=== PATIENT | male | born 1955 | race Native Hawaiian/Other Pacific Islander ===

== ENCOUNTER 2018-02-07 17:48 | Inpatient (IN) | payer OTHER, MEDICAID ==
[~2018-02-07] VITALS: Ht 170.2 cm; Wt 111.6 kg
--- NOTE | 2018-02-07 19:12 | NUR ---
REPORT TAKEN FROM FEROZ PARK. ASSUMING PT CARE AT THIS TIME.
--- NOTE | 2018-02-07 19:22 | NUR ---
DR MICHELLE ADHIKARI MD AT BEDSIDE FOR MSE.
[2018-02-07] MEDS ORDERED: IV NORMAL SALINE 1000 ML BAG IV ONE ×2 (19:30→20:45)
--- NOTE | 2018-02-07 19:31 | NUR ---
LAB AT BEDSIDE FOR BLOOD DRAW.
[2018-02-07 19:52] LABS: BASOPHILS # (AUTO) 0.1 K/uL (0.0-8.0); BASOPHILS % (AUTO) 0.4 % (0.0-2.0); EOSINOPHILS # (AUTO) 0.1 K/uL (0.0-0.7); EOSINOPHILS % (AUTO) 0.9 % (0.0-7.0); HEMATOCRIT 39.4 % (36.7-47.1); HEMOGLOBIN 13.6 g/dL (12.5-16.3); LYMPHOCYTES # (AUTO) 1.1 K/uL (20.0-40.0); LYMPHOCYTES % (AUTO) 6.6 % (20.5-51.5); MEAN CORPUSCULAR HEMOGLOBIN 29.4 uug (23.8-33.4); MEAN CORPUSCULAR HGB CONC 35 g/dL (32.5-36.3); MEAN CORPUSCULAR VOLUME 85.2 fL (73.0-96.2); MONOCYTES # (AUTO) 1.2 K/uL (2.0-10.0); MONOCYTES % (AUTO) 7.4 % (0.0-11.0); NEUTROPHILS # (AUTO) 13.9 K/uL (1.8-8.9); NEUTROPHILS % (AUTO) 84.7 % (38.5-71.5); PLATELET COUNT (AUTO) 300 K/uL (152-348); RED BLOOD CELL COUNT(AUTO) 4.62 MIL/uL (4.06-5.63); WHITE BLOOD COUNT (AUTO) 16.4 K/uL (3.6-10.2)
[2018-02-07 20:13] LABS: BILIRUBIN,DIRECT 0.2 mg/dL (0.0-0.2); BILIRUBIN,TOTAL 0.6 mg/dL (0.2-1.0); CREATININE 1.1 mg/dL (0.6-1.3); POTASSIUM 4.2 mmol/L (3.5-5.1); TOTAL PROTEIN, SERUM 7.7 g/dL (6.4-8.2)
[2018-02-07] MEDS ORDERED: PIPERACILLIN/TAZOBACTAM/D5W 50 ML IV ONE (20:36)
--- NOTE | 2018-02-07 20:36 | NUR ---
PT PROVIDED PERINEAL CARE AND REPOSITIONED IN BED FOR COMFORT. NO ACUTE DISTRESS NOTED.
[2018-02-07] MEDS ORDERED: VANCOMYCIN IV 1,000 MG in IV DEXTROSE 5% 250 ML IV ONE (20:45)
[2018-02-07] MEDS ORDERED: PIPERACILLIN SODIUM/TAZOBACTAM 3.375 G in IV DEXTROSE 5% 50 ML IV ONE (20:45)
[2018-02-07] MEDS ORDERED: LIRA0.6P SQ (20:55)
[2018-02-07] MEDS ORDERED: BENZ1TAB7 PO (20:55)
[2018-02-07] MEDS ORDERED: D-ME118S12 PO (20:55)
[2018-02-07] MEDS ORDERED: ACET-73 PO ×2 (20:55)
[2018-02-07] MEDS ORDERED: ATOR40TA PO (20:55)
[2018-02-07] MEDS ORDERED: TRAZ-147 PO (20:55)
[2018-02-07] MEDS ORDERED: RISP2TAB23 PO (20:55)
[2018-02-07] MEDS ORDERED: ALBU8.5H8 IH (20:55)
[2018-02-07] MEDS ORDERED: HALLS PO (20:55)
[2018-02-07] MEDS ORDERED: MELA3TAB PO (20:55)
[2018-02-07] MEDS ORDERED: DAPA10TA PO (20:55)
[2018-02-07] MEDS ORDERED: DIPH1TAB PO (20:55)
[2018-02-07] MEDS ORDERED: INSU3INS6 SQ (20:55)
[2018-02-07] MEDS ORDERED: LOPE-156 PO (20:55)
[2018-02-07] MEDS ORDERED: METF-494 PO (20:55)
[2018-02-07] MEDS ORDERED: ESCI20TA PO (20:55)
[2018-02-07] MEDS ORDERED: NOVOLIN R (20:55)
[2018-02-07] MEDS ORDERED: GUAI100S4 PO (20:55)
[2018-02-07] MEDS ORDERED: SODI1TAB3 PO (20:55)
[2018-02-07] MEDS ORDERED: [UNRECOGNIZED DRUG - CODE] MC (20:55)
[2018-02-07] MEDS ORDERED: GABA-534 PO (20:55)
[2018-02-07] MEDS ORDERED: METO-356 PO (20:55)
[2018-02-07] MEDS ORDERED: TOBR5DRO46 RIGHTEYE (20:55)
[2018-02-07] MEDS ORDERED: LISI10TA5 PO (20:55)
[2018-02-07] MEDS ORDERED: GLIP10TA11 PO (20:55)
[2018-02-07] MEDS ORDERED: LORA10TA7 PO (20:55)
[2018-02-07] MEDS ORDERED: DICY10CA13 PO (20:55)
[2018-02-07] MEDS ORDERED: IV NS 1000 ML 1,000 ML IV ONE (21:00)
[2018-02-07] MEDS ORDERED: SWABABLE VALVE TRANSFER SET EA MC ONE (21:05)
[2018-02-07] MEDS ORDERED: IV NORMAL SALINE 100 ML ONE (21:05)
[2018-02-07] MEDS ORDERED: NORMAL SALINE FLUSH 10 ML DISP.SYRIN ONE (21:05)
[2018-02-07] MEDS ORDERED: IOHEXOL 300MG/ML 100 ML INFUS..BTL ONE (21:05)
--- NOTE | 2018-02-07 21:30 | NUR ---
ACCOMPANIED TO PT TO CT. PT ON MONITOR. NO ACUTE AVENTS OR DISTRESS DURING PROCEDURE. VSS
[2018-02-07] MEDS ORDERED: VANCOMYCIN IV 200 ML ONE (21:57)
--- NOTE | 2018-02-07 22:17 | NUR ---
DR MARTINEZ SPEAKING W/ DR GILES
--- NOTE | 2018-02-07 22:25 | NUR ---
DR MARTINEZ SPEAKING W/ DR BUCK, COVERING FOR DR MISTRY
--- NOTE | 2018-02-07 22:42 | NUR ---
SPOKE TO WALESKA AT [facility]- WAS TOLD THAT THEY ARE AT CAPACITY AND UNABLE TO ACCEPT PT AT THIS TIME.
[2018-02-07] MEDS ORDERED: METRONIDAZOLE 500 MG/NS 100 ML PIGGYBACK IV ONE (22:45)
--- NOTE | 2018-02-07 22:47 | NUR ---
SPOKE TO BRIEN, ROUGH ROUNDER MACHINE AT [facility]. WAS TOLD THEY HAVE NO BEDS AND ARE UNABLE TO ACCEPT PT.
--- NOTE | 2018-02-07 22:52 | NUR ---
SPOKE TO GISELA FROM [facility]. WAS TOLD THEY DO NOT HAVE AN AVAILABLE UROLOGIST, AND ARE THEREFORE UNABLE TO ACCEPT PT.
--- NOTE | 2018-02-07 23:09 | NUR ---
SPOKE TO [facility] TRANSF[facility] [place]. SEND FACE SHEET AND CT RESULTS. PENDING CALL BACK FOR POSSIBLE PT TRANSFER PHONE: [phone] FAX: [phone]
--- NOTE | 2018-02-07 23:13 | NUR ---
DR BUCK, UROLOGIST AT BEDSIDE FOR EVAL.
--- NOTE | 2018-02-07 23:37 | NUR ---
2335 DR MISTRY AT BEDSIDE FOR EVAL. [address] DR MISTRY SPEAKING TO DR GILES. [address] MARTINEZ SPEAKING TO DR SNOW.
[2018-02-08] VITALS (22 sets, daily range): BP systolic 110–154; BP diastolic 56–90
[2018-02-08] MEDS ORDERED: METRONIDAZOLE 500 MG/NS 100ML 100 ML IV ONE (00:05)
[2018-02-08] MEDS ORDERED: SUCCINYLCHOLINE CHLORIDE 200 MG/10 ML VIAL ONE (00:45)
[2018-02-08] MEDS ORDERED: CLINDAMYCIN PHOSPHATE 600 MG/4 ML VIAL ONE (00:54)
--- NOTE | 2018-02-08 00:55 | NUR ---
PT TAKEN TO OR BY OR NURSE.
[2018-02-08] MEDS ORDERED: ROCURONIUM BROMIDE 50 MG/5 ML VIAL ONE (01:21)
[2018-02-08] MEDS ORDERED: NEOSTIGMINE METHYLSULFATE 10 MG/10 ML VIAL ONE (01:22)
--- NOTE | 2018-02-08 02:20 | NUR ---
Called by crew person LEATHER LACER to administer a resp neb tx. Albuterol Sulfate 2.5mg post op to pt. The med is not accessible on eMAR at this time; XAVIER LEATHER LACER aware and notified and will notify pharmacy of medication administration.
[2018-02-08] MEDS ORDERED: ALBUTEROL SULFATE 2.5 MG/3 ML NEBU ONE (02:22)
[2018-02-08] MEDS: PANTOPRAZOLE SODIUM 40 MG VIAL IV SCH ×2 (02:45→09:05)
[2018-02-08] MEDS ORDERED: DIPHENOXYLATE HCL/ATROP SULF TABLET PO PRN (02:45)
[2018-02-08] MEDS: PIPERACILLIN SODIUM/TAZOBACTAM 3.375 G in IV DEXTROSE 5% 50 ML IV SCH ×3 (02:45→18:33)
[2018-02-08] MEDS ORDERED: [UNRECOGNIZED DRUG - OTHER] IV SCH (02:45)
[2018-02-08] MEDS ORDERED: DEXTROSE IV SCH (02:45)
[2018-02-08] MEDS ORDERED: ONDANSETRON 4 MG/2 ML VIAL IV PRN (02:45)
--- NOTE | 2018-02-08 03:13 | NUR ---
REPORT GIVEN TO PING
[2018-02-08] MEDS ORDERED: IV SODIUM CHLORIDE 3% 500 ML IV PRN (03:30)
--- NOTE | 2018-02-08 03:30 | NUR ---
Pt. admitted to CCU, under care of Dr. SNOW Belongs List completed
--- NOTE | 2018-02-08 03:30 | NUR ---
Received pt from [facility]; pt kept in ER as CCU overflow. s/p Scrotal exploration, I and D, debridement of necrotic tissue by Dr. Lesly Stanton/Dr. Multani. Pt awake and alert, cooperative. Large perineal dressings with mesh intact. IV Hypertonic NS infusing from PACU at 30 ml/hr right forearm, site benign. Smith cath intact and patent draining clear yellow urine. Routine admission care rendered. Dr. Sarahy Pemberton called in for admission orders.
[2018-02-08] MEDS ORDERED: ALBUTEROL SULFATE 8 GM HFA.AER.AD IH SCH (04:00)
--- NOTE | 2018-02-08 04:00 | NUR ---
Ventolin inhaler unavailable with pt in ER; pt received neb Tx in PACU. Pt in no acute resp distress. O2 sats adequate at 98% on room air.
[2018-02-08] MEDS ORDERED: IV D5 1/2 NS 1000 ML 1,000 ML IV PRN (04:15)
[2018-02-08 05:43] LABS: CREATININE 1.1 mg/dL (0.6-1.3); POTASSIUM 4.7 mmol/L (3.5-5.1)
[2018-02-08] MEDS ORDERED: PIPERACILLIN/TAZOBACTAM/D5W 50 ML IV ONE (05:43)
[2018-02-08 05:47] LABS: BASOPHILS % (AUTO) 0.1 % (0.0-2.0); EOSINOPHILS % (AUTO) 0.1 % (0.0-7.0); HEMATOCRIT 39.1 % (36.7-47.1); HEMOGLOBIN 13.3 g/dL (12.5-16.3); LYMPHOCYTES # (AUTO) 0.4 K/uL (20.0-40.0); LYMPHOCYTES % (AUTO) 2.2 % (20.5-51.5); MEAN CORPUSCULAR HEMOGLOBIN 29.4 uug (23.8-33.4); MEAN CORPUSCULAR HGB CONC 34 g/dL (32.5-36.3); MEAN CORPUSCULAR VOLUME 86.6 fL (73.0-96.2); MONOCYTES # (AUTO) 0.5 K/uL (2.0-10.0); MONOCYTES % (AUTO) 2.6 % (0.0-11.0); NEUTROPHILS # (AUTO) 17.8 K/uL (1.8-8.9); PLATELET COUNT (AUTO) 296 K/uL (152-348); RED BLOOD CELL COUNT(AUTO) 4.52 MIL/uL (4.06-5.63); WHITE BLOOD COUNT (AUTO) 18.8 K/uL (3.6-10.2)
--- NOTE | 2018-02-08 06:30 | NUR ---
Denies post op pain. Able to sleep at periodic intervals. At times noted O2 sats can dip down to 89% while asleep but readily picks up to 98%; had refused O2 therapy. Will continue to monitor closely. Please see CCU flowsheet for trends and clinical data.
--- NOTE | 2018-02-08 07:40 | NUR ---
ADMIT PT TO CCU #2,NO S/S OF DISTRESS.PT.DENIES ANY PAIN.DR. WELLS WAS PAGED FOR LAB RES.Na+ FROM 117 [id number] ON 02/07/18 WENT TO 122 ON 02/08/18 AT 0500.PT.ON 3%NS IV AT 30ML/HR.
[2018-02-08] MEDS ORDERED: TOBRAMYCIN/DEXAMETH OPHT DROP 2.5 ML BOTTLE RIGHTEYE SCH ×2 (08:00→12:00)
[2018-02-08] MEDS ORDERED: ALBUTEROL SULFATE 8 GM HFA.AER.AD IH PRN (08:00)
[2018-02-08 08:21] LABS: *BILIRUBIN,URIN NEGATIVE (NEGATIVE); *BLOOD, URINE 1+ (NEGATIVE); *CLARITY,URINE CLEAR (CLEAR); *COLOR,URINE YELLOW (YELLOW); *PROTEIN,URINE TRACE (NEGATIVE); *UROBILINOGEN,URINE 0.2 E.U./dl (NORMAL); LEUKOCYTE ESTERASE ,URINE NEGATIVE (NEGATIVE); NITRITE, URINE NEGATIVE (NEGATIVE); PH,URINE 5.5 (5.0-8.0)
--- NOTE | 2018-02-08 08:40 | NUR ---
PT.WAS SEEN BY WITH NEW ORDERS.
[2018-02-08 08:42] LABS: UGLUCOSE 3+ (NEGATIVE)
[2018-02-08 08:44] LABS: *KETONES,URINE 3+ (NEGATIVE)
[2018-02-08 08:46] LABS: WBC,URINE 0-3 /HPF (0-3)
[2018-02-08 08:47] LABS: BACTERIA,URINE NONE SEEN /HPF (NONE SEEN); MUCUS,URINE FEW /LPF (0-FEW); SQUAMOUS EPITHELIAL CELL,UR FEW /HPF (NONE SEEN)
[2018-02-08] MEDS ORDERED: Medication Not On Formulary EA (Escitalopram Oxalate (Lexapro) 20 MG) PO SCH (09:00)
[2018-02-08] MEDS ORDERED: glipiZIDE 10 MG TABLET PO SCH (09:00)
[2018-02-08] MEDS: GABAPENTIN 300 MG CAPSULE PO SCH ×2 (09:05→20:11)
[2018-02-08] MEDS: ESCITALOPRAM OXALATE 10 MG TABLET PO SCH (09:05)
[2018-02-08] MEDS: POTASSIUM CHLORIDE 10 MEQ in IV NS 1000 ML 1,000 ML IV PRN ×2 (09:05→23:02)
[2018-02-08] MEDS: METOPROLOL SUCCINATE XL 25 MG TAB.SR.24H PO SCH (09:16)
[2018-02-08] MEDS: DICYCLOMINE HCL 10 MG CAPSULE PO SCH (09:16)
[2018-02-08] MEDS: VANCOMYCIN IV 2,000 MG in IV DEXTROSE 5% 500 ML IV SCH (09:31)
[2018-02-08] MEDS ORDERED: DESFLURANE ANESTHESIA GAS 240 ML BOTTLE IH ONE (10:07)
[2018-02-08] MEDS ORDERED: PROPOFOL 200 MG/20 ML BOTTLE IV ONE (10:07)
[2018-02-08] MEDS ORDERED: GLYCOPYRROLATE 0.2 MG/ML VIAL MC ONE (10:07)
[2018-02-08] MEDS ORDERED: IRR NORMAL SALINE IRRIGATION 1,000 ML BOTTLE IR ONE (10:07)
[2018-02-08] MEDS ORDERED: DEXAMETHASONE SOD PHOSPHATE 4 MG INJ IV ONE (10:07)
[2018-02-08] MEDS ORDERED: ONDANSETRON 4 MG/2 ML VIAL IV ONE (10:07)
[2018-02-08] MEDS ORDERED: IV NORMAL SALINE 1000 ML BAG IV ONE (10:07)
[2018-02-08] MEDS ORDERED: LIDOCAINE-MPF 2% 5 ML VIAL MC ONE (10:07)
--- NOTE | 2018-02-08 10:57 | NUR ---
COLD MOLDING PRESS OPERATOR SCROTAL/PERINIUM WOUND TREATMENT ORDERS CLARIFIED WITH SURGEON DR Lesly GILES. ALL DISCUSSED WITH NURSING.
[2018-02-08] MEDS ORDERED: SODIUM HYPOCHLORITE 0.125% 473 ML BOTTLE TP SCH (11:00)
[2018-02-08] MEDS ORDERED: ALBUTEROL SULFATE 2.5 MG/3 ML NEBU NEB PRN (11:15)
[2018-02-08 12:07] LABS: *CREATININE,URINE 43.8 mg/dL (30-125); *URINE TOTAL PROTEIN RANDOM 42.2 mg/dL (<150/24HR)
--- NOTE | 2018-02-08 12:45 | NUR ---
WOUND CARE CONSULT: PT PRESENTS WITH SURGICAL WOUND TO PERINEUM WHICH IS PACKED AND LEFT UNDISTURBED. ORDERS FOR SURGICAL WOUND PREVIOUSLY GIVEN BY DR ELVA GILES. SOME EXCORIATED AREAS TO BUTTOCKS NOTED, NO DRAINAGE NOTED. RECOMMENDATIONS MADE FOR SKIN CARE AND PROTECTION. DISCUSSED WITH NURSING STAFF. PT ON FIRST STEP MATTRESS. ALL SKIN PROTECTION MEASURES IN PLACE. WILL SEE PRN. AQUINO IN AGREEMENT WITH PLAN OF CARE. Addendum: 02/08/18 at 1247 by LOIDA PALOMARES RN Amended: Links added.
--- NOTE | 2018-02-08 13:37 | NUR ---
Pt.was seen by NATALIE TRAN MD
--- NOTE | 2018-02-08 13:45 | NUR ---
Pt.was seen by with new order
--- NOTE | 2018-02-08 14:00 | NUR ---
Pt. was seen by WADE BUCK MD
[2018-02-08] MEDS: CLINDAMYCIN PHOSPHATE IV 900 MG in IV DEXTROSE 5% 100 ML IV SCH ×2 (14:53→21:28)
[2018-02-08] MEDS ORDERED: DEXTROSE 50% 50 ML DISP.SYRIN IV PRN (15:00)
--- NOTE | 2018-02-08 15:23 | NUR ---
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 Will start vanco 2000mg IVPB q18h for predicted vanco trough level of 15.4 mcg/ml at steady state. 1st dose was due today at 1000. Will draw a vancomycin trough level prior to the 4th dose of vancomycin (not yet ordered). Will monitor renal function & adjust the dose if needed. Will follow daily.
[2018-02-08] MEDS: BLOOD SUGAR DIAGNOSTIC 1 EACH STRIP VI SCH ×2 (16:48→21:31)
[2018-02-08] MEDS: INSULIN REGULAR, HUMAN 300 UNIT/3 ML VIAL SQ PRN (16:52)
--- NOTE | 2018-02-08 18:05 | NUR ---
PT.DRINKING DINNER,WATCHING TV,NO S/S OF DISTRESS,DENIES PAIN @ TIME.
--- NOTE | 2018-02-08 20:00 | NUR ---
Awake, alert, cooperative. Denies pain/discomfort. Pt education done on deep breathing and use of IS, pt passive. Stable rhythm and VS. Nursing comfort measures observed at all times. Please see CCU flowsheet for full assessment and clinical data.
[2018-02-08] MEDS: risperiDONE 2 MG TABLET PO SCH (20:11)
[2018-02-08] MEDS: MELATONIN 3 MG TABLET PO SCH (20:12)
[2018-02-08] MEDS: Z GUARD REMEDY PASTE 57 GM TUBE TOP SCH (20:12)
[2018-02-08] MEDS: SODIUM HYPOCHLORITE 0.125% 473 ML BOTTLE TP SCH (20:14)
--- NOTE | 2018-02-08 20:30 | NUR ---
Pt states he has no family. Close lady friend here to visit briefly.
--- NOTE | 2018-02-08 21:00 | NUR ---
Likes to drink cold free water; reinforced teaching to limit due to tendency to become hyponatremic. Given diet juices instead and pt tolerates well. Aspiration precautions observed at all times.
[2018-02-08] MEDS: INSULIN REGULAR, HUMAN 300 UNITS/3 ML VIAL SQ PRN (21:34)
[2018-02-09] VITALS (23 sets, daily range): BP systolic 96–165; BP diastolic 52–94
[2018-02-09] MEDS: PIPERACILLIN SODIUM/TAZOBACTAM 3.375 G in IV DEXTROSE 5% 50 ML IV SCH ×3 (02:13→17:40)
[2018-02-09] MEDS: VANCOMYCIN IV 2,000 MG in IV DEXTROSE 5% 500 ML IV SCH ×2 (03:22→21:15)
[2018-02-09 05:19] LABS: BASOPHILS % (AUTO) 0.3 % (0.0-2.0); EOSINOPHILS # (AUTO) 0.1 K/uL (0.0-0.7); HEMATOCRIT 42.2 % (36.7-47.1); HEMOGLOBIN 14.5 g/dL (12.5-16.3); LYMPHOCYTES % (AUTO) 8.7 % (20.5-51.5); MEAN CORPUSCULAR HEMOGLOBIN 29.7 uug (23.8-33.4); MEAN CORPUSCULAR HGB CONC 34 g/dL (32.5-36.3); MEAN CORPUSCULAR VOLUME 86.4 fL (73.0-96.2); MONOCYTES # (AUTO) 0.9 K/uL (2.0-10.0); MONOCYTES % (AUTO) 8.2 % (0.0-11.0); NEUTROPHILS # (AUTO) 9.1 K/uL (1.8-8.9); NEUTROPHILS % (AUTO) 81.8 % (38.5-71.5); PLATELET COUNT (AUTO) 293 K/uL (152-348); RED BLOOD CELL COUNT(AUTO) 4.88 MIL/uL (4.06-5.63); WHITE BLOOD COUNT (AUTO) 11.2 K/uL (3.6-10.2)
--- NOTE | 2018-02-09 05:30 | NUR ---
Lab works drawn. Routine wound care to surgical perineal site areas done after much encouragement. Medicated with Morphine prior to procedure. AM care rendered. Please see CCU flowsheet for trends and clinical data. Had a restful night.
[2018-02-09] MEDS: MORPHINE SULFATE 4 MG/1 ML DISP.SYRIN IV PRN ×3 (05:37→17:39)
[2018-02-09 05:38] LABS: BILIRUBIN,TOTAL 0.5 mg/dL (0.2-1.0); CREATININE 1.1 mg/dL (0.6-1.3); MAGNESIUM 2.2 mg/dL (1.8-2.4); PHOSPHOROUS 3.6 mg/dL (2.5-4.9); POTASSIUM 4.1 mmol/L (3.5-5.1); TOTAL PROTEIN, SERUM 8.1 g/dL (6.4-8.2)
[2018-02-09] MEDS: Z GUARD REMEDY PASTE 57 GM TUBE TOP PRN (05:38)
[2018-02-09] MEDS: SODIUM HYPOCHLORITE 0.125% 473 ML BOTTLE TP PRN ×2 (05:39→20:22)
[2018-02-09] MEDS: CLINDAMYCIN PHOSPHATE IV 900 MG in IV DEXTROSE 5% 100 ML IV SCH ×3 (05:50→21:15)
--- NOTE | 2018-02-09 08:00 | NUR ---
UROLOGIST IN THE UNIT. CHECKED SCROTAL WOUND. INSTRUCTED FOR MORE DAKINS AND KERLIX PACKING FULLY INTO BOTH SCROTAL SACKS FOR WOUND CARE. PATIENT WAS NOT PREMEDICATED FOR WOUND PACKING DONE BY UROLOGIST. GIVEN PAIN MEDICATION IMMEDIATELY AFTER PACKING OF THE WOUND BY UROLOGIST.
[2018-02-09] MEDS: ESCITALOPRAM OXALATE 10 MG TABLET PO SCH (08:24)
[2018-02-09] MEDS: GABAPENTIN 300 MG CAPSULE PO SCH ×2 (08:24→20:24)
[2018-02-09] MEDS: DICYCLOMINE HCL 10 MG CAPSULE PO SCH (08:24)
[2018-02-09] MEDS: PANTOPRAZOLE SODIUM 40 MG VIAL IV SCH (08:24)
[2018-02-09] MEDS: BLOOD SUGAR DIAGNOSTIC 1 EACH STRIP VI SCH ×4 (08:25→20:33)
[2018-02-09] MEDS: METOPROLOL SUCCINATE XL 25 MG TAB.SR.24H PO SCH (08:25)
[2018-02-09] MEDS: Z GUARD REMEDY PASTE 57 GM TUBE TOP SCH ×2 (08:26→20:22)
[2018-02-09] MEDS: INSULIN REGULAR, HUMAN 300 UNIT/3 ML VIAL SQ PRN ×3 (08:27→17:32)
[2018-02-09] MEDS: SODIUM HYPOCHLORITE 0.125% 473 ML BOTTLE TP SCH ×2 (08:34→20:27)
[2018-02-09] MEDS ORDERED: ACETAMINOPHEN ES 500 MG TABLET PO PRN ×2 (08:45)
[2018-02-09] MEDS ORDERED: D METHORPHAN HB PO PRN (08:45)
[2018-02-09] MEDS ORDERED: [UNRECOGNIZED DRUG - OTHER] PO PRN (08:45)
[2018-02-09] MEDS ORDERED: PROMETH HCL PO PRN (08:45)
[2018-02-09] MEDS ORDERED: LOPERAMIDE HCL 2 MG CAPSULE PO PRN (08:45)
--- NOTE | 2018-02-09 08:55 | NUR ---
doctor mega in to see patient.
[2018-02-09] MEDS: LISINOPRIL 10 MG TABLET PO SCH (09:00)
[2018-02-09] MEDS ORDERED: Medication Not On Formulary EA (Sodium Chloride 1 GM) PO SCH (09:00)
[2018-02-09] MEDS: LORATADINE 10 MG TABLET PO SCH (11:16)
[2018-02-09] MEDS: BENZTROPINE MESYLATE 1 MG TABLET PO SCH ×2 (11:16→17:18)
[2018-02-09] MEDS: SODIUM CHLORIDE 1,000 MG TABLET PO SCH ×3 (11:16→17:18)
[2018-02-09] MEDS: GUAIFENESIN SUGAR FREE 100 MG/5 ML UDC PO SCH ×2 (11:24→11:26)
--- NOTE | 2018-02-09 11:27 | NUR ---
PATIENT STATES HE DOES NOT TAKE ROBITUSSIN REGULARLY A SCHEDULED MED. WILL INFORM PHARMACY.
[2018-02-09] MEDS: POTASSIUM CHLORIDE 10 MEQ in IV NS 1000 ML 1,000 ML IV PRN (13:22)
--- NOTE | 2018-02-09 15:51 | NUR ---
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 Will draw a vancomycin trough level prior to the 4th dose of vancomycin (due tomorrow at 1530). Will monitor renal function & adjust the dose if needed. Will follow daily.
--- NOTE | 2018-02-09 16:30 | NUR ---
DOCTOR CHELSEA IN THE UNIT TO EVALUATE PATIENT. SPOKE TO PATIENT WILL MAKE ADJUSTMENTS TO ANTBIOTICS ACCORDING TO CULTURE RESULTS.
[2018-02-09] MEDS: METFORMIN HCL 500 MG TABLET PO SCH (17:18)
--- NOTE | 2018-02-09 18:23 | NUR ---
WOUND CARE DONE PER WOUND CARE ORDERS. RE ORDER FROM PHARMACY MORE DAKINS SOLUTION. PATIENT WAS PREMEDICATED WITH MORPHINE FOR WOUND CARE. PATIENT TOLERATED WELL.
--- NOTE | 2018-02-09 19:22 | NUR ---
SBAR GIVEN TO DIANNE PARK.
--- NOTE | 2018-02-09 19:30 | NUR ---
ROUNDS MADE PATIENT IN BED AWAKE ,ALERT,ABLE TO ANSWER QUESTIONS . WHEN ASKED PATIENT DENIES PAIN DN DONT NEED PAIN MEDICATION .CALL LIGHT PLACE WITH IN REACH . ADVISED TO CALL FOR HELP .PERINEAL AREA WITH DRESSING CDI NO BLEEDING NOTED.
[2018-02-09] MEDS: MELATONIN 3 MG TABLET PO SCH (20:21)
[2018-02-09] MEDS: risperiDONE 2 MG TABLET PO SCH (20:22)
[2018-02-09] MEDS: ATORVASTATIN 40 MG TABLET PO SCH (20:24)
[2018-02-09] MEDS: INSULIN REGULAR, HUMAN 300 UNITS/3 ML VIAL SQ PRN (20:38)
--- NOTE | 2018-02-09 21:30 | NUR ---
HOB UP . TOOK MEDICATION TOLERATED WITH WATER . ASPIRATION PRECAUTION OBSERVED .
--- NOTE | 2018-02-09 22:00 | NUR ---
TURNED AND REPOSITION PATIENT,OFFLOADED BACK WITH PILLOW . BLE HEELS OFF LOADED AND SCDS USED .PATIENT ON STEP 1 AIR MATTRESS
[2018-02-10] VITALS (13 sets, daily range): BP systolic 96–156; BP diastolic 48–90
--- NOTE | 2018-02-10 03:58 | NUR ---
IN BED BREATHING EVEN AND UNLABORED NO RESPIRATORY DISTRESS .BP 134/74 HR 82 RR 15 SATURATION 93 ROOM AIR NO S/S OF PAIN .
[2018-02-10] MEDS: MORPHINE SULFATE 4 MG/1 ML DISP.SYRIN IV PRN ×2 (05:09→10:17)
[2018-02-10] MEDS: CLINDAMYCIN PHOSPHATE IV 900 MG in IV DEXTROSE 5% 100 ML IV SCH ×3 (05:10→21:59)
[2018-02-10 05:41] LABS: BASOPHILS # (AUTO) 0.1 K/uL (0.0-8.0); BASOPHILS % (AUTO) 0.7 % (0.0-2.0); EOSINOPHILS # (AUTO) 0.3 K/uL (0.0-0.7); EOSINOPHILS % (AUTO) 3.8 % (0.0-7.0); HEMATOCRIT 38.3 % (36.7-47.1); HEMOGLOBIN 13.1 g/dL (12.5-16.3); LYMPHOCYTES # (AUTO) 1.1 K/uL (20.0-40.0); LYMPHOCYTES % (AUTO) 15.1 % (20.5-51.5); MEAN CORPUSCULAR HEMOGLOBIN 29.8 uug (23.8-33.4); MEAN CORPUSCULAR HGB CONC 34 g/dL (32.5-36.3); MEAN CORPUSCULAR VOLUME 86.9 fL (73.0-96.2); MONOCYTES # (AUTO) 0.6 K/uL (2.0-10.0); MONOCYTES % (AUTO) 7.9 % (0.0-11.0); NEUTROPHILS # (AUTO) 5.5 K/uL (1.8-8.9); NEUTROPHILS % (AUTO) 72.5 % (38.5-71.5); PLATELET COUNT (AUTO) 317 K/uL (152-348); RED BLOOD CELL COUNT(AUTO) 4.41 MIL/uL (4.06-5.63); WHITE BLOOD COUNT (AUTO) 7.6 K/uL (3.6-10.2)
[2018-02-10 05:55] LABS: BILIRUBIN,TOTAL 0.3 mg/dL (0.2-1.0); CREATININE 0.9 mg/dL (0.6-1.3); MAGNESIUM 1.7 mg/dL (1.8-2.4); POTASSIUM 4.2 mmol/L (3.5-5.1); TOTAL PROTEIN, SERUM 7.2 g/dL (6.4-8.2)
[2018-02-10] MEDS: PANTOPRAZOLE SODIUM 40 MG TABLET.DR PO SCH (06:12)
[2018-02-10] MEDS: BLOOD SUGAR DIAGNOSTIC 1 EACH STRIP VI SCH ×4 (06:37→22:00)
[2018-02-10] MEDS: INSULIN REGULAR, HUMAN 300 UNIT/3 ML VIAL SQ PRN ×4 (06:43→17:27)
[2018-02-10] MEDS: ESCITALOPRAM OXALATE 10 MG TABLET PO SCH (08:30)
[2018-02-10] MEDS: METFORMIN HCL 500 MG TABLET PO SCH ×2 (08:31→17:21)
[2018-02-10] MEDS: BENZTROPINE MESYLATE 1 MG TABLET PO SCH ×2 (08:31→17:22)
[2018-02-10] MEDS: LORATADINE 10 MG TABLET PO SCH (08:31)
[2018-02-10] MEDS: GABAPENTIN 300 MG CAPSULE PO SCH ×2 (08:32→21:25)
[2018-02-10] MEDS: SODIUM CHLORIDE 1,000 MG TABLET PO SCH ×3 (08:32→17:20)
[2018-02-10] MEDS: METOPROLOL SUCCINATE XL 25 MG TAB.SR.24H PO SCH (08:33)
[2018-02-10] MEDS: LISINOPRIL 10 MG TABLET PO SCH (08:37)
[2018-02-10] MEDS: DICYCLOMINE HCL 10 MG CAPSULE PO SCH (08:38)
[2018-02-10] MEDS: POTASSIUM CHLORIDE 10 MEQ in IV NS 1000 ML 1,000 ML IV PRN (08:58)
[2018-02-10] MEDS: Z GUARD REMEDY PASTE 57 GM TUBE TOP SCH ×2 (08:59→22:00)
[2018-02-10] MEDS: SODIUM HYPOCHLORITE 0.125% 473 ML BOTTLE TP SCH ×2 (09:15→22:00)
--- NOTE | 2018-02-10 09:24 | NUR ---
PAGED DOCTOR SHTORCH REGARDING DOWN GRADING, MAGNESIUM 1.7, AND CHANGE OR INCREASE DIET. WAITING FOR CALL BACK
--- NOTE | 2018-02-10 09:35 | NUR ---
PHYSICAL THERAPY IS HERE WORKING WITH THE PATIENT . PATIENT TOLERATED WELL.
[2018-02-10] MEDS ORDERED: MAGNESIUM SULFATE/D5W 100 ML IV SCH (10:00)
--- NOTE | 2018-02-10 13:52 | NUR ---
PAGED DOCTOR TRAN REGARDING SENSITIVITIES ON MICRO. INFORMED THAT SENSITIVITIES ARE IN REPORT ALREADY.
[2018-02-10] MEDS: PIPERACILLIN/TAZOBACTAM/D5W 3.375 G in PREMIXED 1 EACH IV SCH ×2 (14:35→21:31)
--- NOTE | 2018-02-10 15:15 | NUR ---
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 Trough due today at 1530. Will check level when available and adjust as needed. Will follow Addendum: 02/10/18 at 1634 by MUNDO SCHNEIDER ADM TROUGH 11.4, ALTHOUGH PT OBESE, WEIGHT DROPPED FROM 116KG TO 108KG TODAY - READJUSTED REGIMEN TO 1500MG Q12HR FOR NEW ESTIMATED TROUGH OF 15.9, FIRST DOSE AT 1800. WILL FOLLOW
--- NOTE | 2018-02-10 15:30 | NUR ---
GIVEN REPORT TO BRIEN PARK.
[2018-02-10] MEDS ORDERED: GUAIFENESIN SUGAR FREE 100 MG/5 ML UDC PO PRN (16:00)
--- NOTE | 2018-02-10 16:30 | NUR ---
Received patient via gurney, transferred from CCU. Patient is alert, in no distress. IVF running, no infiltration noted. Smith cath intact/patent draining yellow urine. Wound dressing on scrotal area intact. Safety measures in place. Will continue to monitor
[2018-02-10] MEDS: VANCOMYCIN IV 1,500 MG in IV NORMAL SALINE 500 ML IV SCH (17:25)
--- NOTE | 2018-02-10 18:16 | NUR ---
Accuchecks done as ordered. IV antibiotics running, no infiltration noted. Friend at bedside.
[2018-02-10] MEDS: ATORVASTATIN 40 MG TABLET PO SCH (21:25)
[2018-02-10] MEDS: risperiDONE 2 MG TABLET PO SCH (21:25)
[2018-02-10] MEDS: MELATONIN 3 MG TABLET PO SCH (21:25)
[2018-02-10] MEDS: LACTOBACILLUS RHAMNOSUS GG 1 EACH CAPSULE PO SCH (21:25)
[2018-02-10] MEDS: Z GUARD REMEDY PASTE 57 GM TUBE TOP PRN (21:56)
[2018-02-10] MEDS: INSULIN REGULAR, HUMAN 300 UNITS/3 ML VIAL SQ PRN (21:58)
[2018-02-11 04:00] VITALS: BP 152/80
[2018-02-11] MEDS: SODIUM HYPOCHLORITE 0.125% 473 ML BOTTLE TP PRN (05:06)
[2018-02-11] MEDS: Z GUARD REMEDY PASTE 57 GM TUBE TOP PRN (05:07)
[2018-02-11] MEDS: PIPERACILLIN/TAZOBACTAM/D5W 3.375 G in PREMIXED 1 EACH IV SCH ×3 (05:08→22:45)
[2018-02-11] MEDS: VANCOMYCIN IV 1,500 MG in IV NORMAL SALINE 500 ML IV SCH ×2 (05:11→17:20)
[2018-02-11] MEDS: CLINDAMYCIN PHOSPHATE IV 900 MG in IV DEXTROSE 5% 100 ML IV SCH ×3 (05:11→21:34)
[2018-02-11] MEDS: POTASSIUM CHLORIDE 10 MEQ in IV NS 1000 ML 1,000 ML IV PRN ×2 (05:14→16:53)
[2018-02-11] MEDS: PANTOPRAZOLE SODIUM 40 MG TABLET.DR PO SCH (06:24)
[2018-02-11] MEDS: BLOOD SUGAR DIAGNOSTIC 1 EACH STRIP VI SCH ×4 (06:30→21:30)
--- NOTE | 2018-02-11 06:52 | NUR ---
Patient slept intermittently through the night. Denies pain or SOB. Dressing changes to perineal surgical area done twice. Patient did not complain or pain or discomfort during wound care. Tolerating IV antibiotics well. No adverse reaction noted. Blood sugars within desired limits. Continues on isolation for MRSA.
[2018-02-11] MEDS ORDERED: VANC1.5P9 IV (07:17)
[2018-02-11] MEDS ORDERED: RXVAN XX (07:17)
[2018-02-11] MEDS ORDERED: SODI100010 PO (07:17)
[2018-02-11] MEDS ORDERED: LACT1CAP57 PO (07:17)
[2018-02-11] MEDS ORDERED: PIPE3.379 IV (07:17)
[2018-02-11] MEDS ORDERED: SODI473S8 TP (07:17)
--- NOTE | 2018-02-11 07:51 | NUR ---
resting comfortably in bed, contact isolation implemented for mrsa of wound. stable condition. no s/s of distress. plan to d/c back to snf. wound care will be provided. will continue to monitor. b/s within desired limits.
[2018-02-11] MEDS: METOPROLOL SUCCINATE XL 25 MG TAB.SR.24H PO SCH (08:30)
[2018-02-11] MEDS: SODIUM CHLORIDE 1,000 MG TABLET PO SCH ×3 (08:32→17:20)
[2018-02-11] MEDS: ESCITALOPRAM OXALATE 10 MG TABLET PO SCH (08:32)
[2018-02-11] MEDS: LORATADINE 10 MG TABLET PO SCH (08:32)
[2018-02-11] MEDS: LISINOPRIL 10 MG TABLET PO SCH (08:32)
[2018-02-11] MEDS: GABAPENTIN 300 MG CAPSULE PO SCH ×2 (08:32→21:19)
[2018-02-11] MEDS: BENZTROPINE MESYLATE 1 MG TABLET PO SCH ×2 (08:32→17:20)
[2018-02-11] MEDS: LACTOBACILLUS RHAMNOSUS GG 1 EACH CAPSULE PO SCH ×2 (08:32→21:19)
[2018-02-11] MEDS: DICYCLOMINE HCL 10 MG CAPSULE PO SCH (08:32)
[2018-02-11] MEDS: METFORMIN HCL 500 MG TABLET PO SCH ×2 (08:32→17:20)
[2018-02-11] MEDS: SODIUM HYPOCHLORITE 0.125% 473 ML BOTTLE TP SCH ×2 (08:33→21:30)
[2018-02-11] MEDS: Z GUARD REMEDY PASTE 57 GM TUBE TOP SCH ×2 (08:33→21:22)
--- NOTE | 2018-02-11 09:00 | NUR ---
patient had bowel movement. wound care provided per md orders.
[2018-02-11] MEDS: MORPHINE SULFATE 4 MG/1 ML DISP.SYRIN IV PRN ×2 (09:24→14:41)
[2018-02-11 11:07] VITALS: BP 145/77
[2018-02-11] MEDS: INSULIN REGULAR, HUMAN 300 UNIT/3 ML VIAL SQ PRN ×2 (11:25→16:06)
--- NOTE | 2018-02-11 12:48 | NUR ---
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 3rd dose is due today at 1800. Trough level has been ordered for tomorrow at 0530-RN has been informed to hold 0600 dose if vanco trough level is above 20 mcg/ml. In am,pharmacist will check level when available and adjust as needed. Will follow
--- NOTE | 2018-02-11 14:30 | NUR ---
patient had bowel movement. patient cleaned. wound care also provided per md orders.
[2018-02-11 15:06] VITALS: BP 120/50
--- NOTE | 2018-02-11 17:58 | NUR ---
antibiotics administered. ivf running. blood sugar management provided. wound care provided. stable condition. no signs of aspiration. call light within reach. contact isolation implemented.
--- NOTE | 2018-02-11 19:30 | NUR ---
Received patient sleeping during initial rounds. No s/s of respiratory distress noted. Safety precaution maintained. Continue care as planned.
[2018-02-11 20:00] VITALS: BP 156/69
[2018-02-11] MEDS: MELATONIN 3 MG TABLET PO SCH (21:21)
[2018-02-11] MEDS: risperiDONE 2 MG TABLET PO SCH (21:24)
[2018-02-11] MEDS: ATORVASTATIN 40 MG TABLET PO SCH (21:26)
[2018-02-11] MEDS: INSULIN REGULAR, HUMAN 300 UNITS/3 ML VIAL SQ PRN (21:33)
[2018-02-12 04:38] VITALS: BP 163/84
[2018-02-12] MEDS: CLINDAMYCIN PHOSPHATE IV 900 MG in IV DEXTROSE 5% 100 ML IV SCH ×3 (05:18→21:53)
[2018-02-12] MEDS: BLOOD SUGAR DIAGNOSTIC 1 EACH STRIP VI SCH ×4 (05:46→20:42)
[2018-02-12] MEDS: PIPERACILLIN/TAZOBACTAM/D5W 3.375 G in PREMIXED 1 EACH IV SCH ×3 (05:59→21:17)
[2018-02-12] MEDS: POTASSIUM CHLORIDE 10 MEQ in IV NS 1000 ML 1,000 ML IV PRN ×2 (06:02→20:47)
[2018-02-12] MEDS: PANTOPRAZOLE SODIUM 40 MG TABLET.DR PO SCH (06:48)
[2018-02-12] MEDS: VANCOMYCIN IV 1,500 MG in IV NORMAL SALINE 500 ML IV SCH (06:48)
--- NOTE | 2018-02-12 07:22 | NUR ---
patient resting comfortably at this time. awake/alert. stable condition, no s/s of distress. blood sugar management will be provided. wound care will be provided BID, or when soiled. specialty mattress in place. bed alarm on. call light within reach.
[2018-02-12] MEDS: INSULIN REGULAR, HUMAN 300 UNIT/3 ML VIAL SQ PRN ×3 (08:25→16:41)
[2018-02-12] MEDS: DICYCLOMINE HCL 10 MG CAPSULE PO SCH (08:27)
[2018-02-12] MEDS: GABAPENTIN 300 MG CAPSULE PO SCH ×2 (08:27→20:42)
[2018-02-12] MEDS: METFORMIN HCL 500 MG TABLET PO SCH ×2 (08:28→17:46)
[2018-02-12] MEDS: METOPROLOL SUCCINATE XL 25 MG TAB.SR.24H PO SCH (08:28)
[2018-02-12] MEDS: LORATADINE 10 MG TABLET PO SCH (08:28)
[2018-02-12] MEDS: SODIUM CHLORIDE 1,000 MG TABLET PO SCH ×3 (08:28→16:05)
[2018-02-12] MEDS: BENZTROPINE MESYLATE 1 MG TABLET PO SCH ×2 (08:28→16:05)
[2018-02-12] MEDS: LACTOBACILLUS RHAMNOSUS GG 1 EACH CAPSULE PO SCH ×2 (08:28→20:42)
[2018-02-12] MEDS: LISINOPRIL 10 MG TABLET PO SCH (08:29)
[2018-02-12] MEDS: SODIUM HYPOCHLORITE 0.125% 473 ML BOTTLE TP SCH ×2 (08:29→20:44)
[2018-02-12] MEDS: ESCITALOPRAM OXALATE 10 MG TABLET PO SCH (08:29)
[2018-02-12] MEDS: Z GUARD REMEDY PASTE 57 GM TUBE TOP SCH ×2 (08:29→20:43)
[2018-02-12] MEDS: MORPHINE SULFATE 4 MG/1 ML DISP.SYRIN IV PRN (10:00)
--- NOTE | 2018-02-12 10:29 | NUR ---
wound care provided at this time per md orders.
[2018-02-12 11:15] VITALS: BP 144/59
--- NOTE | 2018-02-12 12:48 | NUR ---
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 Next trough ordered beofre 4th dose tomorrow at 0930. Will check trough and adjust as needed. Will follow
[2018-02-12 15:05] VITALS: BP 111/51
[2018-02-12] MEDS: VANCOMYCIN IV 1,500 MG in IV DEXTROSE 5% 500 ML IV SCH (16:04)
--- NOTE | 2018-02-12 18:29 | NUR ---
wound care provided for second time during shift. wound dressing intact. all antibiotics administered during shift. patient in stable condition. no s/s of distress. blood sugar monitored and managed. vital signs wnl. afebrile. call light within reach, bed alarm on.
[2018-02-12 19:00] VITALS: BP 108/66
--- NOTE | 2018-02-12 19:30 | NUR ---
Pt observed to be AAO x 4 with friend at bedside. Pt made aware of plan of care and has no concerns at this time. No apparent s/s of distress noted. Bed in low, locked position with bad alarm on. Call light within reach. Will continue to monitor closely.
[2018-02-12] MEDS: MELATONIN 3 MG TABLET PO SCH (20:42)
[2018-02-12] MEDS: ATORVASTATIN 40 MG TABLET PO SCH (20:42)
[2018-02-12] MEDS: risperiDONE 2 MG TABLET PO SCH (20:42)
[2018-02-12] MEDS: INSULIN REGULAR, HUMAN 300 UNITS/3 ML VIAL SQ PRN (20:46)
[2018-02-13] MEDS: VANCOMYCIN IV 1,500 MG in IV DEXTROSE 5% 500 ML IV SCH (00:08)
[2018-02-13 04:00] VITALS: BP 118/70
[2018-02-13] MEDS: PIPERACILLIN/TAZOBACTAM/D5W 3.375 G in PREMIXED 1 EACH IV SCH ×4 (05:13→22:23)
[2018-02-13] MEDS: MORPHINE SULFATE 4 MG/1 ML DISP.SYRIN IV PRN ×2 (05:14→15:01)
--- NOTE | 2018-02-13 06:08 | NUR ---
Wound care done as ordered x 2, pt tolerated well. No s/s of acute distress. Pt remains AAO x 4 and aware of plan of care. Bed in low, locked position. Bed alarm on. Call light within reach. Will endorse accordingly.
[2018-02-13] MEDS: CLINDAMYCIN PHOSPHATE IV 900 MG in IV DEXTROSE 5% 100 ML IV SCH ×3 (06:25→22:23)
[2018-02-13] MEDS: PANTOPRAZOLE SODIUM 40 MG TABLET.DR PO SCH (06:26)
[2018-02-13] MEDS: BLOOD SUGAR DIAGNOSTIC 1 EACH STRIP VI SCH ×4 (06:32→22:23)
[2018-02-13 06:37] LABS: BASOPHILS % (AUTO) 0.3 % (0.0-2.0); EOSINOPHILS # (AUTO) 0.3 K/uL (0.0-0.7); EOSINOPHILS % (AUTO) 4.1 % (0.0-7.0); HEMOGLOBIN 12.4 g/dL (12.5-16.3); LYMPHOCYTES # (AUTO) 1.3 K/uL (20.0-40.0); LYMPHOCYTES % (AUTO) 17.2 % (20.5-51.5); MEAN CORPUSCULAR HEMOGLOBIN 29.6 uug (23.8-33.4); MEAN CORPUSCULAR HGB CONC 34 g/dL (32.5-36.3); MEAN CORPUSCULAR VOLUME 86.2 fL (73.0-96.2); MONOCYTES # (AUTO) 0.5 K/uL (2.0-10.0); NEUTROPHILS # (AUTO) 5.2 K/uL (1.8-8.9); NEUTROPHILS % (AUTO) 71.4 % (38.5-71.5); PLATELET COUNT (AUTO) 276 K/uL (152-348); RED BLOOD CELL COUNT(AUTO) 4.18 MIL/uL (4.06-5.63); WHITE BLOOD COUNT (AUTO) 7.3 K/uL (3.6-10.2)
[2018-02-13 06:51] LABS: CREATININE 0.9 mg/dL (0.6-1.3); MAGNESIUM 1.3 mg/dL (1.8-2.4); PHOSPHOROUS 3.4 mg/dL (2.5-4.9); POTASSIUM 3.8 mmol/L (3.5-5.1)
--- NOTE | 2018-02-13 07:22 | NUR ---
PATIENT RESTING COMFORTABLY IN BED, SLEEPING AT THIS TIME. NO S/S OF DISTRESS. STABLE. IVF RUNNING. ANTIBIOTICS WILL BE ADMINISTERED PER MD ORDERS. WOUND CARE WILL BE PROVIDED BID OR WHEN SOILED. PAIN MANAGEMENT WILL BE PROVIDED. WILL MONITOR AND MANAGE BLOOD SUGAR. SPECIALTY MATTRESS ON. BED ALARM ON, CALL LIGHT WITHIN REACH. REYMUNDO IN PLACE AND PATENT.
[2018-02-13] MEDS: BENZTROPINE MESYLATE 1 MG TABLET PO SCH ×2 (08:26→17:08)
[2018-02-13] MEDS: LORATADINE 10 MG TABLET PO SCH (08:26)
[2018-02-13] MEDS: METFORMIN HCL 500 MG TABLET PO SCH ×2 (08:26→17:08)
[2018-02-13] MEDS: SODIUM CHLORIDE 1,000 MG TABLET PO SCH ×3 (08:26→17:08)
[2018-02-13] MEDS: GABAPENTIN 300 MG CAPSULE PO SCH ×2 (08:26→22:21)
[2018-02-13] MEDS: METOPROLOL SUCCINATE XL 25 MG TAB.SR.24H PO SCH (08:26)
[2018-02-13] MEDS: Z GUARD REMEDY PASTE 57 GM TUBE TOP SCH ×2 (08:27→22:22)
[2018-02-13] MEDS: LACTOBACILLUS RHAMNOSUS GG 1 EACH CAPSULE PO SCH ×2 (08:27→22:21)
[2018-02-13] MEDS: SODIUM HYPOCHLORITE 0.125% 473 ML BOTTLE TP SCH ×2 (08:27→22:22)
[2018-02-13] MEDS: LISINOPRIL 10 MG TABLET PO SCH (08:27)
[2018-02-13] MEDS: ESCITALOPRAM OXALATE 10 MG TABLET PO SCH (08:27)
[2018-02-13] MEDS: DICYCLOMINE HCL 10 MG CAPSULE PO SCH (08:27)
[2018-02-13 11:38] VITALS: BP 113/86
[2018-02-13] MEDS: INSULIN REGULAR, HUMAN 300 UNIT/3 ML VIAL SQ PRN ×2 (11:54→17:07)
[2018-02-13] MEDS: VANCOMYCIN IV 1,750 MG in IV NORMAL SALINE 500 ML IV SCH ×2 (12:06→23:49)
--- NOTE | 2018-02-13 14:42 | NUR ---
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 Will reschedule regimen to 1750mg q12hr for new estimated trough of 14.5 (likely will be slightly higher). First dose today at 1200. Will order trough before 4th scheduled dose(not ordered yet). Will follow and adjust per renal function if needed. Will follow
[2018-02-13 15:38] VITALS: BP 138/49
[2018-02-13] MEDS: MAGNESIUM SULFATE/D5W 100 ML IV SCH (15:40)
--- NOTE | 2018-02-13 18:48 | NUR ---
patient requires no IV access. attempted several times to start new iv access. will ask for assistance to start new iv access.
--- NOTE | 2018-02-13 19:10 | NUR ---
PT AWAKE , ALERT , ORIENTEDX4. PT SHOWS NO SIGNS OF DISTRESS. DWYER CATHETER INTACT. NO IV ACCESS. CALL LIGHT WITHIN REACH. BED ALARM ON AND IN LOW POSITION, SIDE [id number]. WILL CONTINUE TO MONITOR.
[2018-02-13 20:00] VITALS: BP 135/60
[2018-02-13] MEDS: ATORVASTATIN 40 MG TABLET PO SCH (22:21)
[2018-02-13] MEDS: risperiDONE 2 MG TABLET PO SCH (22:21)
[2018-02-13] MEDS: MELATONIN 3 MG TABLET PO SCH (22:26)
[2018-02-14] MEDS: MORPHINE SULFATE 4 MG/1 ML DISP.SYRIN IV PRN (04:55)
[2018-02-14] MEDS: PIPERACILLIN/TAZOBACTAM/D5W 3.375 G in PREMIXED 1 EACH IV SCH ×3 (05:00→21:50)
[2018-02-14] MEDS: CLINDAMYCIN PHOSPHATE IV 900 MG in IV DEXTROSE 5% 100 ML IV SCH ×3 (05:00→21:04)
[2018-02-14 06:00] VITALS: BP 136/74
[2018-02-14] MEDS: PANTOPRAZOLE SODIUM 40 MG TABLET.DR PO SCH (06:00)
[2018-02-14] MEDS: BLOOD SUGAR DIAGNOSTIC 1 EACH STRIP VI SCH ×4 (06:32→20:33)
--- NOTE | 2018-02-14 06:51 | NUR ---
PT SLEPT THROUGHOUT THE SHIFT. PT SHOWS NO SIGNS OF DISTRESS. PT STABLE AND VITAL SIGNS WNL. IV INTACT AND PATENT IN RIGHT FOREARM 20G. . PRESCRIBED MEDICATION TAKEN AND PT TOLERATED IT WELL. WOUND CARE DONE. SAFETY AND COMFORT PROVIDED.WILL ENDORSE TO DAYSHIFT NURSE.
--- NOTE | 2018-02-14 07:20 | NUR ---
RECEIVED REPORT FROM ATTENDING PSYCHIATRIST NURSE, PATIENT IN BED, NO DISTRESS NOTED AT THIS TIME, BED IN LOW POSITION, SIDE RAILS UP X2, DWYER DRAINING CLEAR YELLOW URINE.
[2018-02-14] MEDS: METFORMIN HCL 500 MG TABLET PO SCH ×2 (08:11→17:06)
[2018-02-14] MEDS: DICYCLOMINE HCL 10 MG CAPSULE PO SCH (08:12)
[2018-02-14] MEDS: BENZTROPINE MESYLATE 1 MG TABLET PO SCH ×2 (08:12→17:06)
[2018-02-14] MEDS: ESCITALOPRAM OXALATE 10 MG TABLET PO SCH (08:12)
[2018-02-14] MEDS: SODIUM CHLORIDE 1,000 MG TABLET PO SCH ×3 (08:12→17:06)
[2018-02-14] MEDS: LORATADINE 10 MG TABLET PO SCH (08:12)
[2018-02-14] MEDS: GABAPENTIN 300 MG CAPSULE PO SCH ×2 (08:12→20:28)
[2018-02-14] MEDS: LACTOBACILLUS RHAMNOSUS GG 1 EACH CAPSULE PO SCH ×2 (08:12→20:27)
[2018-02-14] MEDS: LISINOPRIL 10 MG TABLET PO SCH (08:13)
[2018-02-14] MEDS: METOPROLOL SUCCINATE XL 25 MG TAB.SR.24H PO SCH (08:13)
[2018-02-14] MEDS: INSULIN REGULAR, HUMAN 300 UNIT/3 ML VIAL SQ PRN ×4 (08:14→20:34)
[2018-02-14] MEDS: SODIUM HYPOCHLORITE 0.125% 473 ML BOTTLE TP SCH ×4 (08:15→21:52)
[2018-02-14] MEDS: Z GUARD REMEDY PASTE 57 GM TUBE TOP SCH ×2 (08:16→20:36)
[2018-02-14 09:25] LABS: CREATININE 1.2 mg/dL (0.6-1.3); MAGNESIUM 1.7 mg/dL (1.8-2.4); PHOSPHOROUS 4.5 mg/dL (2.5-4.9); POTASSIUM 4.2 mmol/L (3.5-5.1)
[2018-02-14 09:56] LABS: WHITE BLOOD COUNT (AUTO) 6.6 K/uL (3.6-10.2)
[2018-02-14 10:04] LABS: BASOPHILS % (AUTO) 0.6 % (0.0-2.0); EOSINOPHILS # (AUTO) 0.3 K/uL (0.0-0.7); EOSINOPHILS % (AUTO) 3.9 % (0.0-7.0); LYMPHOCYTES # (AUTO) 1.2 K/uL (20.0-40.0); LYMPHOCYTES % (AUTO) 18.3 % (20.5-51.5); MEAN CORPUSCULAR HEMOGLOBIN 29.8 uug (23.8-33.4); MEAN CORPUSCULAR HGB CONC 35 g/dL (32.5-36.3); MEAN CORPUSCULAR VOLUME 86.3 fL (73.0-96.2); MONOCYTES # (AUTO) 0.5 K/uL (2.0-10.0); MONOCYTES % (AUTO) 8.1 % (0.0-11.0); NEUTROPHILS # (AUTO) 4.6 K/uL (1.8-8.9); NEUTROPHILS % (AUTO) 69.1 % (38.5-71.5); PLATELET COUNT (AUTO) 311 K/uL (152-348); RED BLOOD CELL COUNT(AUTO) 4.61 MIL/uL (4.06-5.63)
[2018-02-14 10:05] LABS: HEMATOCRIT 39.8 % (36.7-47.1); HEMOGLOBIN 13.7 g/dL (12.5-16.3)
[2018-02-14 11:25] VITALS: BP 148/81
[2018-02-14] MEDS: MAGNESIUM SULFATE/D5W 100 ML IV SCH (11:54)
--- NOTE | 2018-02-14 12:37 | NUR ---
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 4th dose is due at midnight. Will order trough before 4th scheduled dose(ordered for 02/14 at 2330- RN has been informed to hold midnight dose if vanco trough level is above 20 mcg/ml). Will follow and adjust per renal function if needed. Will follow
[2018-02-14] MEDS: VANCOMYCIN IV 1,750 MG in IV NORMAL SALINE 500 ML IV SCH (12:49)
[2018-02-14 16:25] VITALS: BP 145/81
--- NOTE | 2018-02-14 18:08 | NUR ---
Patient has been cooperative with care, all needs met. Patient reports no pain to surgical site, wound care performed without any distress to patient. Currently patient is in bed, no distress noted, bed in low position, side rails up x2, air mattress inflated and austin draining clear yellow urine. Patient is consuming a large amount of water.
--- NOTE | 2018-02-14 19:20 | NUR ---
Received pt lying in bed. AAOx4. In no acute distress. Denies any pain or SOB at this time. O2 sat at 97% on RA. IV site on right FA intact and patent. FC intact and draining via gravity. Safety measure initiated and call mathews within reach.
[2018-02-14] MEDS: ATORVASTATIN 40 MG TABLET PO SCH (20:28)
[2018-02-14] MEDS: MELATONIN 3 MG TABLET PO SCH (20:28)
[2018-02-14] MEDS: risperiDONE 2 MG TABLET PO SCH (20:28)
[2018-02-14] MEDS: SODIUM HYPOCHLORITE 0.125% 473 ML BOTTLE TP PRN (20:38)
--- NOTE | 2018-02-14 20:39 | NUR ---
Patient requesting to have treatment done on scrotal area before going to sleep tonight.
[2018-02-14 20:53] VITALS: BP 149/76
--- NOTE | 2018-02-14 21:52 | NUR ---
Offered to have treatment and dressing change to wound. Pt refusing, requesting to just have it done tomorrow per schedule. Stated he wants to go to sleep now.
--- NOTE | 2018-02-14 22:45 | NUR ---
AT 2055, 2129 AND 2229- DOCTOR LABORATORY ADMINISTRATIVE DIRECTOR WAS PAGE STILL AWAITING RETURN CALL. AT 2244 - DOCTOR PALOMA CALLED BACK, INFORMED ABOUT THE 2 MISSED DOSE OF MAGNESIUM AND DOCTOR PALOMA INSTRUCTED THIS NURSE TO FORWARD CONCERN TO PCP IN AM TOMORROW.
[2018-02-15] MEDS: VANCOMYCIN IV 1,750 MG in IV NORMAL SALINE 500 ML IV SCH (00:32)
[2018-02-15 04:00] VITALS: BP 154/87
[2018-02-15] MEDS: PIPERACILLIN/TAZOBACTAM/D5W 3.375 G in PREMIXED 1 EACH IV SCH ×2 (05:01→13:24)
[2018-02-15] MEDS: PANTOPRAZOLE SODIUM 40 MG TABLET.DR PO SCH (06:15)
--- NOTE | 2018-02-15 06:31 | NUR ---
AAOx4. In no acute distress. Denies any pain or SOB. O2 sat at 99% on RA. IV site on right FA intact and patent. FC intact and draining via gravity. No adverse reaction noted from IV ABX. Refused treatment to scrotal/perineal wound last night. Safety measure maintained and call mathews within reach.
[2018-02-15] MEDS: BLOOD SUGAR DIAGNOSTIC 1 EACH STRIP VI SCH ×4 (06:34→19:56)
[2018-02-15] MEDS: LISINOPRIL 10 MG TABLET PO SCH (08:34)
[2018-02-15] MEDS: GABAPENTIN 300 MG CAPSULE PO SCH ×2 (08:34→19:56)
[2018-02-15] MEDS: SODIUM CHLORIDE 1,000 MG TABLET PO SCH ×3 (08:34→17:31)
[2018-02-15] MEDS: BENZTROPINE MESYLATE 1 MG TABLET PO SCH ×2 (08:35→17:31)
[2018-02-15] MEDS: METFORMIN HCL 500 MG TABLET PO SCH ×2 (08:35→17:31)
[2018-02-15] MEDS: LORATADINE 10 MG TABLET PO SCH (08:35)
[2018-02-15] MEDS: METOPROLOL SUCCINATE XL 25 MG TAB.SR.24H PO SCH (08:35)
[2018-02-15] MEDS: LACTOBACILLUS RHAMNOSUS GG 1 EACH CAPSULE PO SCH ×2 (08:35→19:56)
[2018-02-15] MEDS: DICYCLOMINE HCL 10 MG CAPSULE PO SCH (08:35)
[2018-02-15] MEDS: ESCITALOPRAM OXALATE 10 MG TABLET PO SCH (08:36)
[2018-02-15] MEDS: INSULIN REGULAR, HUMAN 300 UNIT/3 ML VIAL SQ PRN ×3 (08:38→17:31)
[2018-02-15] MEDS: Z GUARD REMEDY PASTE 57 GM TUBE TOP SCH (08:46)
[2018-02-15 11:05] VITALS: BP 120/70
[2018-02-15 15:13] VITALS: BP 130/69
--- NOTE | 2018-02-15 17:32 | NUR ---
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 Will check vanco random tomorrow with am labs. Will continue to dose vanco by fall off level for now. Will follow up
--- NOTE | 2018-02-15 18:35 | NUR ---
PT RESTING IN BED WITH NO SIGNS OF RESPIRATORY DISTRESS. PT WILL DC TO [facility] VIA AMBULANCE AT 1999. WILL ENDORSE TO MOVIE WRITER.
--- NOTE | 2018-02-15 19:10 | NUR ---
Received pt lying in bed. AAOx4. In no acute distress. Denies any pain or SOB at this time. O2 sat at 96% on RA. IV site on right FA intact and patent. FC intact and draining via gravity. Safety measure initiated and call mathews within reach.
--- NOTE | 2018-02-15 19:20 | NUR ---
TELEPHONE CALL TO [facility], GAVE REPORT REGARDING PATIENT CONDITION AND STATES UNDERSTANDING.
[2018-02-15] MEDS: MELATONIN 3 MG TABLET PO SCH (19:56)
[2018-02-15] MEDS: ATORVASTATIN 40 MG TABLET PO SCH (19:56)
[2018-02-15] MEDS: risperiDONE 2 MG TABLET PO SCH (19:56)
[2018-02-15] MEDS: INSULIN REGULAR, HUMAN 300 UNITS/3 ML VIAL SQ PRN (19:59)
[2018-02-15 20:10] VITALS: BP 145/76
--- NOTE | 2018-02-15 20:10 | NUR ---
PT AAOX4. DENIES ANY PAIN OR SOB. IN NO ACUTE DISTRESS. IV SITE ON RIGHT FOREARM INTACT AND PATENT. FC INTACT AND DRAINING VIA GRAVITY. PATIENT PICKED UP BY 2 PAR[facility]EDICS VIA [facility] AND DISCHARGE TO ;[facility]. REPORT AND ALL PAPER WORK GIVEN TO PARAMEDICS AND VERBALIZED UNDERSTANDING.
[2018-03-20] MEDS ORDERED: LEVO750T21 PO (08:20)
== END 2018-02-15 20:15 | DRG 853 ==
LOC: ER 18:03 → TRANSITION 02-08 03:28 → CCU 02-08 07:20 → TELE 02-10 16:20 → MED 02-10 22:32
PROVIDERS: ADMIT Internal Medicine Nephrology; ATTEND Internal Medicine Nephrology
PROC: 0JBB0ZZ Excision of Perineum Subcutaneous Tissue and Fascia, Open Approach (ICD-10-PCS; principal; 2018-02-08 01:00)
PROC: 0HBAXZZ Excision of Inguinal Skin, External Approach (ICD-10-PCS; principal; 2018-02-08 01:00)
DX: A41.9 Sepsis, unspecified organism (principal); M72.6 Necrotizing fasciitis; E22.2 Syndrome of inappropriate secretion of antidiuretic hormone; E88.09 Other disorders of plasma-protein metabolism, not elsewhere classified; E11.9 Type 2 diabetes mellitus without complications; B96.20 Unspecified Escherichia coli [E. coli] as the cause of diseases classified elsewhere; L02.215 Cutaneous abscess of perineum; Z68.41 Body mass index [BMI] 40.0-44.9, adult; N49.3 Fournier gangrene; Z79.4 Long term (current) use of insulin; E66.9 Obesity, unspecified; F31.9 Bipolar disorder, unspecified; K76.0 Fatty (change of) liver, not elsewhere classified; N49.2 Inflammatory disorders of scrotum; Z68.38 Body mass index [BMI] 38.0-38.9, adult; K40.20 Bilateral inguinal hernia, without obstruction or gangrene, not specified as recurrent; B96.1 Klebsiella pneumoniae [K. pneumoniae] as the cause of diseases classified elsewhere; B95.1 Streptococcus, group B, as the cause of diseases classified elsewhere
CPT/HCPCS: 36415; 70030-TC; 71045; 83605; 83690; 83735; 84100; 84156; 84300; 85025; 85730; 86850; 86900; 86901; 87040; 87070; 87075; 87077; 87806; 93005; 94664; A4217; A4649; A4663; C9113; J0330; J1100; J1815; J2270; J2405; J2543; J2710; J3370; J3475; J3480; J3490; J3535; J7030; J7040; J7042; J7060; Q9967

== ENCOUNTER 2018-03-15 23:28 | Inpatient (IN) | payer OTHER, MEDICAID ==
[~2018-03-15] VITALS: Ht 172.7 cm; Wt 107.1 kg
[~2018-03-15 23:28] MED LIST: ACET-73 PO; ALBU8.5H8 IH; ATOR40TA PO; BENZ1TAB7 PO; D-ME118S12 PO; DAPA10TA PO; DICY10CA13 PO; DIPH1TAB PO; ESCI20TA PO; GABA-534 PO; GLIP10TA11 PO; GUAI100S4 PO; LACT1CAP57 PO; LISI10TA5 PO; LOPE-156 PO; LORA10TA7 PO; MELA3TAB PO; METF-494 PO; METO-356 PO; NOVOLIN R; PIPE3.379 IV; RISP2TAB23 PO; RXVAN XX; SODI100010 PO; SODI1TAB3 PO; SODI473S8 TP; TRAZ-147 PO; VANC1.5P9 IV
[2018-03-15] MEDS ORDERED: BLOO-140 IN (23:45)
[2018-03-15] MEDS ORDERED: MULT1TAB73 PO (23:45)
[2018-03-16] VITALS (8 sets, daily range): BP systolic 80–180; BP diastolic 47–90
[2018-03-16] MEDS ORDERED: IV NORMAL SALINE 1000 ML BAG IV ONE (00:15)
[2018-03-16] MEDS ORDERED: ONDANSETRON 4 MG/2 ML VIAL IV ONE (00:15)
--- NOTE | 2018-03-16 00:15 | NUR ---
DR DIAN ADHIKARI MD AT BEDSIDE FOR MSE.
[2018-03-16] MEDS ORDERED: ONDANSETRON 4 MG/2 ML VIAL ONE (00:24)
--- NOTE | 2018-03-16 00:38 | NUR ---
LAB AT BEDSIDE FOR BLOOD DRAW.
--- NOTE | 2018-03-16 00:49 | NUR ---
PT TAKEN TO RADIOLOGY VIA [facility] FOR XRAY/CT. NO DISTRESS NOTED.
[2018-03-16 00:54] LABS: BASOPHILS % (AUTO) 0.1 % (0.0-2.0); EOSINOPHILS # (AUTO) 0.1 K/uL (0.0-0.7); EOSINOPHILS % (AUTO) 0.4 % (0.0-7.0); HEMATOCRIT 36.1 % (36.7-47.1); HEMOGLOBIN 12.5 g/dL (12.5-16.3); LYMPHOCYTES # (AUTO) 1.1 K/uL (20.0-40.0); MEAN CORPUSCULAR HEMOGLOBIN 29.2 uug (23.8-33.4); MEAN CORPUSCULAR HGB CONC 35 g/dL (32.5-36.3); MEAN CORPUSCULAR VOLUME 84.3 fL (73.0-96.2); MONOCYTES # (AUTO) 0.6 K/uL (2.0-10.0); MONOCYTES % (AUTO) 4.1 % (0.0-11.0); NEUTROPHILS # (AUTO) 13.7 K/uL (1.8-8.9); NEUTROPHILS % (AUTO) 88.4 % (38.5-71.5); PLATELET COUNT (AUTO) 165 K/uL (152-348); RED BLOOD CELL COUNT(AUTO) 4.28 MIL/uL (4.06-5.63); WHITE BLOOD COUNT (AUTO) 15.6 K/uL (3.6-10.2)
--- NOTE | 2018-03-16 01:01 | NUR ---
PT BACK IN ROOM FROM CT. PER ANALYSIS MANAGER, PT IS UNABLE TO FOLLOW COMMANDS.
[2018-03-16 01:04] LABS: CREATININE 1.5 mg/dL (0.6-1.3); POTASSIUM 3.6 mmol/L (3.5-5.1)
[2018-03-16] MEDS ORDERED: IV SODIUM CHLORIDE 3% 500 ML IV ONE (01:15)
[2018-03-16 01:18] LABS: BILIRUBIN,DIRECT 0.2 mg/dL (0.0-0.2); BILIRUBIN,TOTAL 1.1 mg/dL (0.2-1.0); TOTAL PROTEIN, SERUM 8.2 g/dL (6.4-8.2)
--- NOTE | 2018-03-16 01:43 | NUR ---
REPORT GIVEN TO XAVIER STEWARD.
[2018-03-16] MEDS ORDERED: MAGNESIUM HYDROXIDE 30 ML LIQUID UDC PO PRN (02:15)
[2018-03-16] MEDS ORDERED: MORPHINE SULFATE 4 MG/1 ML DISP.SYRIN IV PRN (02:15)
[2018-03-16] MEDS ORDERED: ZOLPIDEM 5 MG TABLET PO PRN (02:15)
[2018-03-16] MEDS ORDERED: DEXTROSE 50% 50 ML DISP.SYRIN IV PRN (02:15)
[2018-03-16] MEDS ORDERED: ONDANSETRON 4 MG/2 ML VIAL IV PRN (02:15)
[2018-03-16] MEDS ORDERED: HYDROCODONE/APAP 5-325MG TABLET PO PRN (02:15)
[2018-03-16] MEDS ORDERED: IV SODIUM CHLORIDE 3% 500 ML IV PRN (02:15)
--- NOTE | 2018-03-16 02:15 | NUR ---
Pt. admitted to TELE, under care of Dr. LÓPEZ Belongs List completed
--- NOTE | 2018-03-16 02:46 | NUR ---
ADMITTED PATIENT IN TELE UNIT UNDER THE CARE JENELLE LÓPEZ NP, BELONG LIST DONE.
[2018-03-16] MEDS: PANTOPRAZOLE SODIUM 40 MG TABLET.DR PO SCH (06:18)
[2018-03-16 06:19] LABS: CREATININE 1.7 mg/dL (0.6-1.3); PHOSPHOROUS 3.6 mg/dL (2.5-4.9); POTASSIUM 3.6 mmol/L (3.5-5.1)
[2018-03-16] MEDS: BLOOD SUGAR DIAGNOSTIC 1 EACH STRIP VI SCH ×4 (06:19→21:20)
--- NOTE | 2018-03-16 06:41 | NUR ---
NOTIFY JENELLE LÓPEZ NP MAGNESIUM 1 AND SODIUM 120, AWAITING FOR ORDERS. PATIENT ALERT AWAKE, SINUS RYTHM READING, TURN AND REPOSITION, KEPT CLEAN AND DRY, NO FURTHER EPISODE OF NAUSEA/VOMITTING NOR DIARRHEA NOTED, KEPT CLEAN AND DRY. CALL LIGHT WITHIN REACH.
[2018-03-16] MEDS: INSULIN REGULAR, HUMAN 300 UNIT/3 ML VIAL SQ PRN ×3 (08:38→16:57)
[2018-03-16] MEDS: MAGNESIUM SULFATE/D5W 100 ML IV SCH ×5 (08:48→16:32)
[2018-03-16] MEDS: IV NS 1000 ML 1,000 ML IV PRN (08:56)
--- NOTE | 2018-03-16 09:36 | NUR ---
PATIENT IN STABLE CONDITION, NO S/S OF DISTRESS. BLOOD SUGAR MANAGEMENT PROVIDED. WOUND CARE CONSULT WILL BE PLACED. PT CONSULT WILL BE PLACED. BED IN LOCKED/LOW POSITION, SIDE RAILS UP X2, BED ALARM ON, CALL LIGHT WITHIN REACH OF PATIENT. IV FLUIDS RUNNING. MAGNESIUM WILL BE REPLACED DUE TO HYPOMAGNESEMIA. WILL CONTINUE TO MONITOR.
--- NOTE | 2018-03-16 09:42 | NUR ---
PATIENT ABLE TO AMBULATE. REFUSES TO WEAR NON-SLIP SOCKS. EDUCATED PATIENT IMPORTANCE OF NON-SLIP SOCKS TO PREVENT FALLS. PATIENT VERBALIZES THAT IT BOTHERS HIM AND DOES NOT LIKE WEARING THEM.
[2018-03-16] MEDS ORDERED: MELATONIN 3 MG TABLET PO SCH (11:30)
[2018-03-16] MEDS: SODIUM CHLORIDE 1,000 MG TABLET PO SCH ×2 (12:10→16:31)
[2018-03-16] MEDS: DICYCLOMINE HCL 10 MG CAPSULE PO SCH (12:11)
[2018-03-16] MEDS: ESCITALOPRAM OXALATE 10 MG TABLET PO SCH (12:11)
[2018-03-16] MEDS: GABAPENTIN 300 MG CAPSULE PO SCH ×2 (12:11→16:30)
[2018-03-16] MEDS: MULTIVITAMINS,THERAPEUTIC TABLET PO SCH (12:11)
[2018-03-16] MEDS: METFORMIN HCL 850 MG TABLET PO SCH ×2 (12:11→17:01)
[2018-03-16] MEDS: glipiZIDE 10 MG TABLET PO SCH ×2 (12:11→16:30)
[2018-03-16] MEDS: risperiDONE 2 MG TABLET PO SCH ×2 (12:11→21:21)
[2018-03-16] MEDS: TRAZODONE 100 MG TABLET PO SCH ×2 (12:12→21:21)
[2018-03-16] MEDS: LORATADINE 10 MG TABLET PO SCH (12:12)
[2018-03-16] MEDS: METOPROLOL SUCCINATE XL 25 MG TAB.SR.24H PO SCH (12:12)
[2018-03-16] MEDS ORDERED: METOPROLOL TARTRATE 5 MG/5 ML VIAL IVP PRN (12:15)
[2018-03-16 12:16] LABS: CREATININE 1.6 mg/dL (0.6-1.3); POTASSIUM 3.9 mmol/L (3.5-5.1)
[2018-03-16] MEDS: BENZTROPINE MESYLATE 1 MG TABLET PO SCH (16:30)
--- NOTE | 2018-03-16 18:16 | NUR ---
IV-FLUIDS RUNNING. BLOOD PRESSURE MANAGEMENT PROVIDED. BLOOD SUGAR MANAGEMENT PROVIDED. STABLE CONDITION, NO S/S OF DISTRESS. PATIENT IS URINATING AND NOT FOLLOWING COMMANDS FOR PROVIDING URINE FOR SAMPLING. PATIENT VERY UNMOTIVATED AND REFUSES TO URINATE IN URINAL WHEN PATIENT IS CONTINENT OF URINE/BOWEL AND IS ALSO ABLE TO AMBULATE TO RESTROOM.
[2018-03-16] MEDS ORDERED: Z GUARD REMEDY PASTE 57 GM TUBE TOP PRN (18:45)
[2018-03-16 19:05] LABS: *BILIRUBIN,URIN NEGATIVE (NEGATIVE); *BLOOD, URINE 2+ (NEGATIVE); *CLARITY,URINE CLEAR (CLEAR); *COLOR,URINE YELLOW (YELLOW); *KETONES,URINE NEGATIVE (NEGATIVE); *PROTEIN,URINE 1+ (NEGATIVE); *UROBILINOGEN,URINE 0.2 E.U./dl (NORMAL); LEUKOCYTE ESTERASE ,URINE 1+ (NEGATIVE); NITRITE, URINE NEGATIVE (NEGATIVE)
[2018-03-16 19:18] LABS: UGLUCOSE 3+ (NEGATIVE)
[2018-03-16 19:22] LABS: BACTERIA,URINE MODERATE /HPF (NONE SEEN); SQUAMOUS EPITHELIAL CELL,UR FEW /HPF (NONE SEEN)
[2018-03-16 19:24] LABS: WBC,URINE 20-50 /HPF (0-3)
[2018-03-16] MEDS ORDERED: ENOXAPARIN SODIUM 40 MG/0.4 ML DISP.SYRIN SQ SCH (21:00)
[2018-03-16] MEDS: ATORVASTATIN 40 MG TABLET PO SCH (21:21)
[2018-03-16] MEDS: MELATONIN 3 MG TABLET PO SCH (21:29)
[2018-03-17] VITALS (9 sets, daily range): BP systolic 98–199; BP diastolic 52–99
--- NOTE | 2018-03-17 | NUR ---
Patient awake requesting warm blanket, no distress noted. BP was low 80/47. Warm blanket provided, placed on Trendelenburg position & Bolus of 250 ml NS administered. Re-checked BP post intervention. Current BP 101/50. Sinus rhythm on the monitor.
--- NOTE | 2018-03-17 02:18 | NUR ---
Incontinence care provided. Kept comfortable.
[2018-03-17 06:07] LABS: BASOPHILS # (AUTO) 0.1 K/uL (0.0-8.0); BASOPHILS % (AUTO) 0.4 % (0.0-2.0); EOSINOPHILS # (AUTO) 0.1 K/uL (0.0-0.7); EOSINOPHILS % (AUTO) 0.8 % (0.0-7.0); HEMATOCRIT 35.6 % (36.7-47.1); HEMOGLOBIN 12.1 g/dL (12.5-16.3); LYMPHOCYTES # (AUTO) 1.5 K/uL (20.0-40.0); LYMPHOCYTES % (AUTO) 10.7 % (20.5-51.5); MEAN CORPUSCULAR HEMOGLOBIN 29.1 uug (23.8-33.4); MEAN CORPUSCULAR HGB CONC 34 g/dL (32.5-36.3); MEAN CORPUSCULAR VOLUME 85.8 fL (73.0-96.2); MONOCYTES % (AUTO) 7.6 % (0.0-11.0); NEUTROPHILS # (AUTO) 10.9 K/uL (1.8-8.9); NEUTROPHILS % (AUTO) 80.5 % (38.5-71.5); PLATELET COUNT (AUTO) 160 K/uL (152-348); RED BLOOD CELL COUNT(AUTO) 4.15 MIL/uL (4.06-5.63); WHITE BLOOD COUNT (AUTO) 13.6 K/uL (3.6-10.2)
[2018-03-17 06:33] LABS: THYROID STIMULATING HORMONE 1.313 mIU/mL (0.358-3.740)
[2018-03-17 06:35] LABS: CREATININE 3.6 mg/dL (0.6-1.3); MAGNESIUM 2.7 mg/dL (1.8-2.4); PHOSPHOROUS 6.1 mg/dL (2.5-4.9); POTASSIUM 4.4 mmol/L (3.5-5.1)
[2018-03-17] MEDS: glipiZIDE 10 MG TABLET PO SCH ×2 (06:41→18:19)
[2018-03-17] MEDS: PANTOPRAZOLE SODIUM 40 MG TABLET.DR PO SCH (06:41)
[2018-03-17] MEDS: BLOOD SUGAR DIAGNOSTIC 1 EACH STRIP VI SCH ×4 (06:49→20:38)
--- NOTE | 2018-03-17 07:35 | NUR ---
patient resting comfortably in bed at this time. will monitor patient's blood pressure. stable condition, no s/s of distress. will encourage patient to ambulate. positive for urinary tract infection, will notify MD. blood sugar management will be provided. bed in locked/low position, side rails up x2, bed alarm on, call light within reach.
[2018-03-17] MEDS: INSULIN REGULAR, HUMAN 300 UNIT/3 ML VIAL SQ PRN ×3 (08:05→20:37)
[2018-03-17] MEDS: GABAPENTIN 300 MG CAPSULE PO SCH ×2 (08:20→18:19)
[2018-03-17] MEDS: SODIUM CHLORIDE 1,000 MG TABLET PO SCH ×3 (08:20→18:19)
[2018-03-17] MEDS: DICYCLOMINE HCL 10 MG CAPSULE PO SCH (08:21)
[2018-03-17] MEDS: MULTIVITAMINS,THERAPEUTIC TABLET PO SCH (08:21)
[2018-03-17] MEDS: BENZTROPINE MESYLATE 1 MG TABLET PO SCH ×2 (08:21→18:18)
[2018-03-17] MEDS: LORATADINE 10 MG TABLET PO SCH (08:21)
[2018-03-17] MEDS: ESCITALOPRAM OXALATE 10 MG TABLET PO SCH (08:22)
[2018-03-17] MEDS: METOPROLOL SUCCINATE XL 25 MG TAB.SR.24H PO SCH (08:23)
[2018-03-17] MEDS: METFORMIN HCL 850 MG TABLET PO SCH (08:23)
[2018-03-17] MEDS ORDERED: IV NORMAL SALINE 500 ML IV ONE (11:00)
[2018-03-17] MEDS ORDERED: IV NS 1000 ML 1,000 ML IV ONE (11:00)
[2018-03-17] MEDS: IV NS 1000 ML 1,000 ML IV PRN (12:16)
[2018-03-17] MEDS ORDERED: CEFTRIAXONE 1 G in IV DEXTROSE 5% 50 ML IV SCH (14:00)
[2018-03-17] MEDS: ACETAMINOPHEN 325 MG TABLET PO PRN (17:03)
[2018-03-17] MEDS ORDERED: MEROPENEM 1 G in IV NORMAL SALINE 100 ML IV SCH (17:30)
[2018-03-17] MEDS ORDERED: IBUPROFEN 600 MG TABLET PO ONE (17:33)
[2018-03-17] MEDS ORDERED: IBUPROFEN 600 MG TABLET PO PRN (17:45)
[2018-03-17] MEDS: MEROPENEM 500 MG in IV NORMAL SALINE 50 ML IV SCH (18:19)
--- NOTE | 2018-03-17 18:55 | NUR ---
Heart Rate was in the 140s sinus tachy on tele @ 1700. Temperature elevated up to 103.0 degrees F. blood pressure elevated to 197/90. o2 saturation 100% on 2L NC. MD Notified-orders placed per MD: - blood cultures x2 stat - ekg stat - XR chest stat - merrem 1g q8h - ibuprofen 600 mg q8hprn - lactic acid TRAFFIC LAW ATTORNEY did not order to start sepsis fluid challenge when asked, patient was already given Bolus NS 1L during the day and patient's blood pressure elevated. Lopressor IV 10 mg administered for increased blood pressure and heart rate.
--- NOTE | 2018-03-17 19:03 | NUR ---
patient's condition improved. blood pressure, heart rate (114) improved from 140s, temperature improved 100.3.
--- NOTE | 2018-03-17 20:00 | NUR ---
PT ALERT AWAKE IN NO ACUTE DISTRESS. ABLE TO MAKE NEEDS KNOWN. NEED. SINUS TACHY NOTED WITH HR 113. BP 101/55. TEMP 99.4. OXYGEN 96%. ENCOURAGED PT WITH ADLS REMINDING TO USE URINAL. CALL LIGHT WITHIN REACH. LACTID ACID 2.6. GENEVIEVE DONOVAN PRODUCT INSPECTION COORDINATOR IS AWARE. WILL CONTINUE TO MONITOR.
[2018-03-17] MEDS: risperiDONE 2 MG TABLET PO SCH (20:25)
[2018-03-17] MEDS: TRAZODONE 100 MG TABLET PO SCH (20:25)
[2018-03-17] MEDS: ATORVASTATIN 40 MG TABLET PO SCH (20:25)
[2018-03-17] MEDS: HEPARIN SODIUM,PORCINE 5,000 UNITS/ML VIAL SQ SCH (20:28)
[2018-03-17] MEDS: MELATONIN 3 MG TABLET PO SCH (20:28)
--- NOTE | 2018-03-17 21:31 | NUR ---
BLADDER SCAN PERFORMED WITH 87ML OBTAINED. PT MADE AWARE OF F/C NEEDED OF RESIDUAL IS >300ML. WILL CONTINUE TO MONITOR.
[2018-03-17 22:01] LABS: BILIRUBIN,DIRECT 0.2 mg/dL (0.0-0.2); BILIRUBIN,TOTAL 0.6 mg/dL (0.2-1.0)
[2018-03-18] VITALS (7 sets, daily range): BP systolic 96–172; BP diastolic 40–80
--- NOTE | 2018-03-18 | NUR ---
HEAD OF ETHICS AND COMPLIANCE SHOWING SINUS RHYTHM WITH HR 73 AT THIS TIME. NO S/S OF HYPER/HYPOGLYCEMIA OR EPISODES OF DIZZINESS. WILL CONTINUE TO MONITOR. ENCOURAGED REPOSITIONING.
[2018-03-18] MEDS: MEROPENEM 500 MG in IV NORMAL SALINE 50 ML IV SCH ×2 (04:56→17:36)
--- NOTE | 2018-03-18 05:46 | NUR ---
PT'S BLADDER SCAN NOTED 381ML. PT MADE AWARE OF CATHETER INSERTION PER ORDER. PT STATED HE WILL USE THE URINAL AND REFUSES THE CATHETER AT THIS TIME. PT REMINDED TO INFORM STAFF WHEN ABLE TO URINATE IN URINAL. WILL CONTINUE TO MONITOR.
[2018-03-18] MEDS: PANTOPRAZOLE SODIUM 40 MG TABLET.DR PO SCH (06:12)
[2018-03-18] MEDS: BLOOD SUGAR DIAGNOSTIC 1 EACH STRIP VI SCH ×4 (06:30→20:58)
[2018-03-18] MEDS: glipiZIDE 10 MG TABLET PO SCH ×2 (06:30→16:42)
--- NOTE | 2018-03-18 07:13 | NUR ---
PATIENT RESTING COMFORTABLY IN BED AT THIS TIME. NO S/S OF DISTRESS. STABLE CONDITION. TEMPERATURE WNL, BLOOD PRESSURE. HEART RATE WNL. SINUS RHYTHM ON TELE-MONITOR. NO INSULIN COVERAGE REQUIRED THIS AM BEFORE BREAKFAST. BLADDER SCAN Q8H. PREVIOUS BLADDER SCAN SHOWS 381. NEEDS STRAIGHT CATH ABOVE 300 BUT PATIENT REFUSES STRAIGHT CATH AT THIS TIME AND VERBALIZES THAT HE WILL URINATE. WILL CONTINUE TO MONITOR.
[2018-03-18 07:29] LABS: BILIRUBIN,TOTAL 0.9 mg/dL (0.2-1.0); CREATININE 3.7 mg/dL (0.6-1.3); MAGNESIUM 2.4 mg/dL (1.8-2.4); PHOSPHOROUS 4.7 mg/dL (2.5-4.9); POTASSIUM 4.2 mmol/L (3.5-5.1); TOTAL PROTEIN, SERUM 7.9 g/dL (6.4-8.2)
[2018-03-18 07:46] LABS: BASOPHILS % (AUTO) 0.3 % (0.0-2.0); EOSINOPHILS # (AUTO) 0.4 K/uL (0.0-0.7); EOSINOPHILS % (AUTO) 2.7 % (0.0-7.0); HEMOGLOBIN 13.3 g/dL (12.5-16.3); LYMPHOCYTES # (AUTO) 0.9 K/uL (20.0-40.0); MEAN CORPUSCULAR HEMOGLOBIN 29.8 uug (23.8-33.4); MEAN CORPUSCULAR HGB CONC 34 g/dL (32.5-36.3); MEAN CORPUSCULAR VOLUME 87.9 fL (73.0-96.2); MONOCYTES # (AUTO) 1.1 K/uL (2.0-10.0); MONOCYTES % (AUTO) 7.6 % (0.0-11.0); NEUTROPHILS # (AUTO) 12.2 K/uL (1.8-8.9); NEUTROPHILS % (AUTO) 83.4 % (38.5-71.5); PLATELET COUNT (AUTO) 135 K/uL (152-348); RED BLOOD CELL COUNT(AUTO) 4.46 MIL/uL (4.06-5.63); WHITE BLOOD COUNT (AUTO) 14.6 K/uL (3.6-10.2)
[2018-03-18 07:49] LABS: HEMATOCRIT 39.2 % (36.7-47.1)
[2018-03-18] MEDS: SODIUM CHLORIDE 1,000 MG TABLET PO SCH ×3 (08:23→16:42)
[2018-03-18] MEDS: DICYCLOMINE HCL 10 MG CAPSULE PO SCH (08:23)
[2018-03-18] MEDS: BENZTROPINE MESYLATE 1 MG TABLET PO SCH ×2 (08:23→16:42)
[2018-03-18] MEDS: METOPROLOL SUCCINATE XL 25 MG TAB.SR.24H PO SCH (08:23)
[2018-03-18] MEDS: LORATADINE 10 MG TABLET PO SCH (08:23)
[2018-03-18] MEDS: MULTIVITAMINS,THERAPEUTIC TABLET PO SCH (08:23)
[2018-03-18] MEDS: ESCITALOPRAM OXALATE 10 MG TABLET PO SCH (08:23)
[2018-03-18] MEDS: GABAPENTIN 300 MG CAPSULE PO SCH ×2 (08:23→16:42)
[2018-03-18] MEDS: HEPARIN SODIUM,PORCINE 5,000 UNITS/ML VIAL SQ SCH ×2 (08:25→21:01)
--- NOTE | 2018-03-18 08:30 | NUR ---
ELEVATED BLOOD PRESSURE WITH INCREASED HR ON TELE MONITOR SINUS TACHY: METOPROLOL ROUTINE MORNING MEDICATION ADMINISTERED. WILL CONTINUE TO MONITOR BP.
[2018-03-18] MEDS: IV NS 1000 ML 1,000 ML IV PRN ×2 (09:32→19:43)
[2018-03-18] MEDS: ACETAMINOPHEN 325 MG TABLET PO PRN (10:43)
--- NOTE | 2018-03-18 10:44 | NUR ---
TEMPERATURE INCREASED TO 100.7 TYLENOL 650 MG PO ADMINISTERED. WILL CONTINUE TO MONITOR.
--- NOTE | 2018-03-18 11:40 | NUR ---
EXTRUSION SUPERVISOR EXTRUSION SUPERVISOR CLARIFIED SCROTAL WOUND TREATMENT ORDERS WITH HIEN FENTON. WOUND RN DISCUSSED WITH PRIMARY RN. WOUND CARE WILL DEFER CONSULT AND TREATMENT PLAN TO SURGICAL TEAM AT THIS TIME. PATIENT WITH REY AT 16. ALL PRESSURE ULCER PREVENTION MEASURES NOTED TO BE IN PLACE. WILL SEE PRN.
[2018-03-18] MEDS: INSULIN REGULAR, HUMAN 300 UNIT/3 ML VIAL SQ PRN ×3 (11:41→21:00)
--- NOTE | 2018-03-18 16:05 | NUR ---
PATIENT URINATED THREE TIMES: LARGE AMOUNT. HAVING TO CHANGE ENTIRE BEDDING EACH TIME. URINE OUTPUT ADEQUATE. FLUID INTAKE ADEQUATE, IVF RUNNING.
--- NOTE | 2018-03-18 18:27 | NUR ---
BLOOD PRESSURE STABLE, SINUS TACHY ON TELE HR 108. WOUND CARE PROVIDED. AFEBRILE AT THIS TIME. ANTIBIOTICS ADMINISTERED. IVF RUNNING. PATIENT URINATED 4-5 TIMES THROUGHOUT SHIFT WITH LARGE URINE OUTPUTS EACH TIME. BLOOD SUGAR MANAGED. BLOOD PRESSURE MANAGED. STABLE CONDITION. BED ALARM ON, CALL LIGHT WITHIN REACH.
--- NOTE | 2018-03-18 19:53 | NUR ---
Received pt AAO x 3 with IVF running as ordered. Vital signs WNL. Noted to have good urine output at this time. Will continue to monitor closely.
[2018-03-18] MEDS: MELATONIN 3 MG TABLET PO SCH (20:54)
[2018-03-18] MEDS: TRAZODONE 100 MG TABLET PO SCH (20:55)
[2018-03-18] MEDS: CEFEPIME HCL 1 G in IV DEXTROSE 5% 50 ML IV SCH (20:55)
[2018-03-18] MEDS: ATORVASTATIN 40 MG TABLET PO SCH (20:55)
[2018-03-18] MEDS: risperiDONE 2 MG TABLET PO SCH (20:55)
[2018-03-18] MEDS ORDERED: CEFEPIME HCL 1 G in IV DEXTROSE 5% 50 ML IV SCH (21:00)
[2018-03-19] VITALS: BP 130/80
[2018-03-19 04:00] VITALS: BP 113/66
[2018-03-19] MEDS: IV NS 1000 ML 1,000 ML IV PRN (06:38)
[2018-03-19] MEDS: PANTOPRAZOLE SODIUM 40 MG TABLET.DR PO SCH (06:46)
[2018-03-19] MEDS: BLOOD SUGAR DIAGNOSTIC 1 EACH STRIP VI SCH ×4 (06:46→20:21)
--- NOTE | 2018-03-19 06:54 | NUR ---
Noted to be voiding throughout the night. IVF running as ordered. Wound care done. Will endorse accordingly.
[2018-03-19 07:08] LABS: EOSINOPHILS # (AUTO) 0.1 K/uL (0.0-0.7); LYMPHOCYTES # (AUTO) 0.9 K/uL (20.0-40.0); MONOCYTES # (AUTO) 0.7 K/uL (2.0-10.0)
[2018-03-19 07:10] LABS: CREATININE 2.2 mg/dL (0.6-1.3); MAGNESIUM 1.7 mg/dL (1.8-2.4); PHOSPHOROUS 2.4 mg/dL (2.5-4.9); POTASSIUM 3.4 mmol/L (3.5-5.1)
[2018-03-19 07:20] LABS: BASOPHILS % (AUTO) 0.3 % (0.0-2.0); EOSINOPHILS % (AUTO) 0.6 % (0.0-7.0); LYMPHOCYTES % (AUTO) 10.2 % (20.5-51.5); MEAN CORPUSCULAR HEMOGLOBIN 29.9 uug (23.8-33.4); MEAN CORPUSCULAR HGB CONC 35 g/dL (32.5-36.3); MEAN CORPUSCULAR VOLUME 85.4 fL (73.0-96.2); NEUTROPHILS # (AUTO) 7.3 K/uL (1.8-8.9); NEUTROPHILS % (AUTO) 80.9 % (38.5-71.5); PLATELET COUNT (AUTO) 158 K/uL (152-348)
[2018-03-19 07:21] LABS: HEMATOCRIT 31.6 % (36.7-47.1)
[2018-03-19] MEDS: glipiZIDE 10 MG TABLET PO SCH ×2 (08:23→17:35)
[2018-03-19] MEDS: ESCITALOPRAM OXALATE 10 MG TABLET PO SCH (08:24)
[2018-03-19] MEDS: GABAPENTIN 300 MG CAPSULE PO SCH ×2 (08:25→17:36)
[2018-03-19] MEDS: LORATADINE 10 MG TABLET PO SCH (08:25)
[2018-03-19] MEDS: DICYCLOMINE HCL 10 MG CAPSULE PO SCH (08:25)
[2018-03-19] MEDS: SODIUM CHLORIDE 1,000 MG TABLET PO SCH ×3 (08:25→17:36)
[2018-03-19] MEDS: MULTIVITAMINS,THERAPEUTIC TABLET PO SCH (08:25)
[2018-03-19] MEDS: BENZTROPINE MESYLATE 1 MG TABLET PO SCH ×2 (08:25→17:35)
[2018-03-19] MEDS: HEPARIN SODIUM,PORCINE 5,000 UNITS/ML VIAL SQ SCH ×2 (08:27→20:23)
[2018-03-19] MEDS: METOPROLOL SUCCINATE XL 25 MG TAB.SR.24H PO SCH (08:28)
[2018-03-19] MEDS ORDERED: POTASSIUM CHLORIDE 20 MEQ TAB.PRT.SR PO ONE (10:00)
[2018-03-19] MEDS: MAGNESIUM SULFATE/D5W 100 ML IV SCH ×2 (10:41→12:07)
[2018-03-19] MEDS ORDERED: NEUTRA PHOS PACKET PO ONE (11:00)
[2018-03-19 11:50] VITALS: BP 138/72
--- NOTE | 2018-03-19 12:00 | NUR ---
DR. BURNETT NOTIFIED AND IS AWARE THAT THIS PT. IS TOTALLY NON-COMPLIANT. ALTHOUGH HE IS AMBULATORY HE REFUSES TO AMB. TO THE BR TO URINATE-- "STATES "I'M JUST LAZY AND DON'T WANT TO GET UP" REFUSES TO EVEN URINATE IN THE URINAL--STATES 'I JUST DON'T WANT TO BOTHER. HAVING DIFFICULTY WITH THE FLUID RESTRICTION.
[2018-03-19] MEDS: INSULIN REGULAR, HUMAN 300 UNIT/3 ML VIAL SQ PRN ×3 (12:02→20:23)
[2018-03-19 15:27] LABS: CREATININE 2.1 mg/dL (0.6-1.3)
[2018-03-19 15:30] VITALS: BP 137/52
[2018-03-19 19:00] VITALS: BP 150/75
[2018-03-19] MEDS: ACETAMINOPHEN 325 MG TABLET PO PRN (19:46)
[2018-03-19] MEDS: ATORVASTATIN 40 MG TABLET PO SCH (20:18)
[2018-03-19] MEDS: risperiDONE 2 MG TABLET PO SCH (20:18)
[2018-03-19] MEDS: MELATONIN 3 MG TABLET PO SCH (20:18)
[2018-03-19] MEDS: CEFEPIME HCL 1 G in IV DEXTROSE 5% 50 ML IV SCH (20:18)
[2018-03-19] MEDS: TRAZODONE 100 MG TABLET PO SCH (20:18)
[2018-03-20 04:00] VITALS: BP 137/77
--- NOTE | 2018-03-20 05:42 | NUR ---
Pt constantly reinforced and reminded to void in urinal, but remains uncooperative and passive with all instructions. Remains to void in diaper. Pt made aware of plan of care. Fluid restriction enforced at 800 cc/hr. Wound care provided. Safety measures/environment at all times. Will continue to endorse accordingly.
[2018-03-20] MEDS: PANTOPRAZOLE SODIUM 40 MG TABLET.DR PO SCH (06:43)
[2018-03-20] MEDS: BLOOD SUGAR DIAGNOSTIC 1 EACH STRIP VI SCH ×4 (06:43→20:10)
[2018-03-20] MEDS: glipiZIDE 10 MG TABLET PO SCH ×2 (06:43→17:07)
--- NOTE | 2018-03-20 06:49 | NUR ---
Urine specimen collected and brought down to lab
[2018-03-20 06:55] LABS: *BILIRUBIN,URIN NEGATIVE (NEGATIVE); *BLOOD, URINE NEGATIVE (NEGATIVE); *CLARITY,URINE CLEAR (CLEAR); *COLOR,URINE YELLOW (YELLOW); *KETONES,URINE NEGATIVE (NEGATIVE); *PROTEIN,URINE 1+ (NEGATIVE); *UROBILINOGEN,URINE 0.2 E.U./dl (NORMAL); LEUKOCYTE ESTERASE ,URINE TRACE (NEGATIVE); NITRITE, URINE NEGATIVE (NEGATIVE)
[2018-03-20 06:57] LABS: BILIRUBIN,TOTAL 0.4 mg/dL (0.2-1.0); CREATININE 2.1 mg/dL (0.6-1.3); PHOSPHOROUS 3.6 mg/dL (2.5-4.9); POTASSIUM 4.1 mmol/L (3.5-5.1); TOTAL PROTEIN, SERUM 7.9 g/dL (6.4-8.2)
[2018-03-20 07:15] LABS: BASOPHILS % (AUTO) 0.6 % (0.0-2.0); EOSINOPHILS # (AUTO) 0.2 K/uL (0.0-0.7); LYMPHOCYTES # (AUTO) 0.8 K/uL (20.0-40.0); LYMPHOCYTES % (AUTO) 12.3 % (20.5-51.5); MEAN CORPUSCULAR HEMOGLOBIN 29.9 uug (23.8-33.4); MEAN CORPUSCULAR HGB CONC 35 g/dL (32.5-36.3); MEAN CORPUSCULAR VOLUME 86.2 fL (73.0-96.2); MONOCYTES # (AUTO) 0.8 K/uL (2.0-10.0); MONOCYTES % (AUTO) 11.6 % (0.0-11.0); NEUTROPHILS # (AUTO) 4.9 K/uL (1.8-8.9); NEUTROPHILS % (AUTO) 72.5 % (38.5-71.5); PLATELET COUNT (AUTO) 174 K/uL (152-348); RED BLOOD CELL COUNT(AUTO) 4.13 MIL/uL (4.06-5.63); WHITE BLOOD COUNT (AUTO) 6.8 K/uL (3.6-10.2)
[2018-03-20 07:30] LABS: UGLUCOSE 2+ (NEGATIVE)
--- NOTE | 2018-03-20 07:30 | NUR ---
REPORT RECEIVED.PT REMAINS AWAKE,ALERT.DENIES PAIN,DISCOMFORT.PT WAS UPDATED ON PLAN OF CARE,FLUID RESTRICTION.
[2018-03-20 07:35] LABS: BACTERIA,URINE NONE SEEN /HPF (NONE SEEN); SQUAMOUS EPITHELIAL CELL,UR FEW /HPF (NONE SEEN); WBC,URINE 20-50 /HPF (0-3)
[2018-03-20 07:36] LABS: COARSE GRANULAR CASTS,URINE 0-3 /LPF; RENAL EPITHELIAL CELLS,URINE FEW /LPF (NONE SEEN)
[2018-03-20 07:56] LABS: HEMATOCRIT 35.6 % (36.7-47.1); HEMOGLOBIN 12.4 g/dL (12.5-16.3)
[2018-03-20 08:07] LABS: *CREATININE,URINE 73.2 mg/dL (30-125)
[2018-03-20] MEDS: HEPARIN SODIUM,PORCINE 5,000 UNITS/ML VIAL SQ SCH ×2 (08:14→20:12)
[2018-03-20] MEDS: GABAPENTIN 300 MG CAPSULE PO SCH ×2 (08:14→17:07)
[2018-03-20] MEDS: DICYCLOMINE HCL 10 MG CAPSULE PO SCH (08:14)
[2018-03-20] MEDS: ESCITALOPRAM OXALATE 10 MG TABLET PO SCH (08:14)
[2018-03-20] MEDS: SODIUM CHLORIDE 1,000 MG TABLET PO SCH ×3 (08:14→17:07)
[2018-03-20] MEDS: BENZTROPINE MESYLATE 1 MG TABLET PO SCH ×2 (08:14→17:07)
[2018-03-20] MEDS: LORATADINE 10 MG TABLET PO SCH (08:15)
[2018-03-20] MEDS: MULTIVITAMINS,THERAPEUTIC TABLET PO SCH (08:15)
[2018-03-20] MEDS: METOPROLOL SUCCINATE XL 25 MG TAB.SR.24H PO SCH (08:19)
[2018-03-20 08:20] VITALS: BP 114/64
[2018-03-20] MEDS ORDERED: LEVO750T21 PO (08:20)
[2018-03-20 08:26] LABS: YEAST,URINE BUDDING YEAST /HPF (NONE SEEN)
[2018-03-20 11:42] VITALS: BP 108/58
[2018-03-20] MEDS: INSULIN REGULAR, HUMAN 300 UNIT/3 ML VIAL SQ PRN ×3 (11:58→20:13)
--- NOTE | 2018-03-20 12:00 | NUR ---
WOUND TREATMENT TO SCROTUMWAS DONE.PT TOLERATED WELL.WILL CONTINUE TO MONITOR,
[2018-03-20] MEDS: SODIUM HYPOCHLORITE 0.125% 473 ML BOTTLE TP SCH (12:49)
[2018-03-20 15:32] VITALS: BP 119/73
[2018-03-20 19:00] VITALS: BP 123/64
--- NOTE | 2018-03-20 19:34 | NUR ---
Awake and AAO x 3. Aware of free fluid restriction and plan of care. Denies discomfort at this time. Safety environment at all times. Will continue to monitor closely.
[2018-03-20] MEDS: risperiDONE 2 MG TABLET PO SCH (20:09)
[2018-03-20] MEDS: ATORVASTATIN 40 MG TABLET PO SCH (20:09)
[2018-03-20] MEDS: TRAZODONE 100 MG TABLET PO SCH (20:09)
[2018-03-20] MEDS: IV NS 1000 ML 1,000 ML IV PRN (20:10)
[2018-03-20] MEDS: CEFEPIME HCL 1 G in IV DEXTROSE 5% 50 ML IV SCH (20:11)
[2018-03-20] MEDS: MELATONIN 3 MG TABLET PO SCH (20:12)
[2018-03-21] MEDS: PANTOPRAZOLE SODIUM 40 MG TABLET.DR PO SCH (06:32)
[2018-03-21] MEDS: glipiZIDE 10 MG TABLET PO SCH (06:32)
[2018-03-21 06:35] VITALS: BP 128/65
[2018-03-21] MEDS: BLOOD SUGAR DIAGNOSTIC 1 EACH STRIP VI SCH ×2 (06:37→11:50)
--- NOTE | 2018-03-21 06:38 | NUR ---
Fluid restriction reinforced. No s/s of distress noted at this time. Continues to void in diaper. Safety environment provided at all times. Call light within reach. Will endorse accordingly.
[2018-03-21 07:06] LABS: BASOPHILS % (AUTO) 0.9 % (0.0-2.0); EOSINOPHILS # (AUTO) 0.4 K/uL (0.0-0.7); EOSINOPHILS % (AUTO) 7.6 % (0.0-7.0); HEMATOCRIT 33.2 % (36.7-47.1); HEMOGLOBIN 11.5 g/dL (12.5-16.3); LYMPHOCYTES # (AUTO) 1.2 K/uL (20.0-40.0); LYMPHOCYTES % (AUTO) 22.9 % (20.5-51.5); MEAN CORPUSCULAR HEMOGLOBIN 29.8 uug (23.8-33.4); MEAN CORPUSCULAR HGB CONC 35 g/dL (32.5-36.3); MEAN CORPUSCULAR VOLUME 86.2 fL (73.0-96.2); MONOCYTES # (AUTO) 0.7 K/uL (2.0-10.0); MONOCYTES % (AUTO) 14.4 % (0.0-11.0); NEUTROPHILS # (AUTO) 2.8 K/uL (1.8-8.9); NEUTROPHILS % (AUTO) 54.2 % (38.5-71.5); PLATELET COUNT (AUTO) 196 K/uL (152-348); RED BLOOD CELL COUNT(AUTO) 3.85 MIL/uL (4.06-5.63); WHITE BLOOD COUNT (AUTO) 5.1 K/uL (3.6-10.2)
[2018-03-21 07:12] LABS: CREATININE 1.8 mg/dL (0.6-1.3); MAGNESIUM 1.8 mg/dL (1.8-2.4); PHOSPHOROUS 3.5 mg/dL (2.5-4.9)
[2018-03-21 08:13] VITALS: BP 140/71
[2018-03-21] MEDS: BENZTROPINE MESYLATE 1 MG TABLET PO SCH (08:15)
[2018-03-21] MEDS: GABAPENTIN 300 MG CAPSULE PO SCH (08:15)
[2018-03-21] MEDS: METOPROLOL SUCCINATE XL 25 MG TAB.SR.24H PO SCH (08:15)
[2018-03-21] MEDS: SODIUM CHLORIDE 1,000 MG TABLET PO SCH ×2 (08:15→12:37)
[2018-03-21] MEDS: DICYCLOMINE HCL 10 MG CAPSULE PO SCH (08:15)
[2018-03-21] MEDS: MULTIVITAMINS,THERAPEUTIC TABLET PO SCH (08:15)
[2018-03-21] MEDS: LORATADINE 10 MG TABLET PO SCH (08:15)
[2018-03-21] MEDS: ESCITALOPRAM OXALATE 10 MG TABLET PO SCH (08:15)
[2018-03-21] MEDS: SODIUM HYPOCHLORITE 0.125% 473 ML BOTTLE TP SCH (08:16)
[2018-03-21] MEDS: HEPARIN SODIUM,PORCINE 5,000 UNITS/ML VIAL SQ SCH (09:58)
[2018-03-21 11:13] VITALS: BP 125/70
[2018-03-21] MEDS: INSULIN REGULAR, HUMAN 300 UNIT/3 ML VIAL SQ PRN (12:33)
[2018-03-21 15:01] VITALS: BP 149/79
--- NOTE | 2018-03-21 16:00 | NUR ---
Pt discharged back to [facility]. Assisted pt to lobby via w/c. Pt left in fair condition. Denied pain. No acute distress noted. Discharge summary and instructions given. Educated by staff pharmacist regarding his home medications. Left with all belongings. Right upper arm midline and ID band removed. Answered all questions.
== END 2018-03-21 16:25 | DRG 871 ==
LOC: ER 23:32 → TELE 03-16 01:20 → MED 03-19 10:48
PROVIDERS: ADMIT Nurse Practitioner Acute Care; ATTEND Nurse Practitioner Acute Care
PROC: 05H533Z Insertion of Infusion Device into Right Subclavian Vein, Percutaneous Approach (ICD-10-PCS; principal; 2018-03-19)
DX: A41.9 Sepsis, unspecified organism (principal); N17.0 Acute kidney failure with tubular necrosis; E22.2 Syndrome of inappropriate secretion of antidiuretic hormone; I50.30 Unspecified diastolic (congestive) heart failure; Z68.41 Body mass index [BMI] 40.0-44.9, adult; N10 Acute pyelonephritis; R65.20 Severe sepsis without septic shock; E86.0 Dehydration; E83.42 Hypomagnesemia; Z79.4 Long term (current) use of insulin; E88.09 Other disorders of plasma-protein metabolism, not elsewhere classified; F31.9 Bipolar disorder, unspecified; R82.4 Acetonuria; T43.225A Adverse effect of selective serotonin reuptake inhibitors, initial encounter; Y92.099 Unspecified place in other non-institutional residence as the place of occurrence of the external cause; I11.0 Hypertensive heart disease with heart failure; B96.89 Other specified bacterial agents as the cause of diseases classified elsewhere; Z16.31 Resistance to antiparasitic drug(s); Z16.19 Resistance to other specified beta lactam antibiotics; S31.30XA Unspecified open wound of scrotum and testes, initial encounter; X58.XXXA Exposure to other specified factors, initial encounter; A08.4 Viral intestinal infection, unspecified; K40.20 Bilateral inguinal hernia, without obstruction or gangrene, not specified as recurrent; E87.6 Hypokalemia; E78.5 Hyperlipidemia, unspecified; E11.65 Type 2 diabetes mellitus with hyperglycemia; E66.9 Obesity, unspecified; M48.04 Spinal stenosis, thoracic region; M89.9 Disorder of bone, unspecified; Z79.899 Other long term (current) drug therapy
CPT/HCPCS: 36415; 70030-TC; 71045; 76770; 83605; 83690; 83735; 84100; 84156; 84300; 84443; 84550; 85025; 87040; 87070; 87077; 87086; 93005; 93307; A4217; A4663; J0692; J0696; J1644; J1650; J1815; J2185; J2405; J3475; J3490; J7030; J7040; J7060

== ENCOUNTER 2018-03-29 12:35 | Emergency (ER) | payer OTHER, MEDICAID ==
[~2018-03-29] VITALS: Ht 170.2 cm; Wt 104.3 kg
[~2018-03-29 12:35] MED LIST changes: +BLOO-140 IN; -D-ME118S12 PO; -GUAI100S4 PO; -LACT1CAP57 PO; +LEVO750T21 PO; -LISI10TA5 PO; -METF-494 PO; +MULT1TAB73 PO; -PIPE3.379 IV; -RXVAN XX; -SODI100010 PO; -SODI473S8 TP; -VANC1.5P9 IV
[2018-03-29] MEDS ORDERED: IV NORMAL SALINE 1000 ML BAG IV ONE (13:00)
[2018-03-29] MEDS ORDERED: LACT1CAP69 PO (13:06)
[2018-03-29 13:10] LABS: BASOPHILS # (AUTO) 0.1 K/uL (0.0-8.0); BASOPHILS % (AUTO) 1.1 % (0.0-2.0); EOSINOPHILS # (AUTO) 0.2 K/uL (0.0-0.7); EOSINOPHILS % (AUTO) 3.9 % (0.0-7.0); HEMATOCRIT 37.1 % (36.7-47.1); HEMOGLOBIN 12.7 g/dL (12.5-16.3); LYMPHOCYTES # (AUTO) 1.5 K/uL (20.0-40.0); MEAN CORPUSCULAR HEMOGLOBIN 29.5 uug (23.8-33.4); MEAN CORPUSCULAR HGB CONC 34 g/dL (32.5-36.3); MEAN CORPUSCULAR VOLUME 86.3 fL (73.0-96.2); MONOCYTES # (AUTO) 0.5 K/uL (2.0-10.0); MONOCYTES % (AUTO) 8.8 % (0.0-11.0); NEUTROPHILS # (AUTO) 3.4 K/uL (1.8-8.9); NEUTROPHILS % (AUTO) 60.2 % (38.5-71.5); PLATELET COUNT (AUTO) 312 K/uL (152-348); RED BLOOD CELL COUNT(AUTO) 4.29 MIL/uL (4.06-5.63); WHITE BLOOD COUNT (AUTO) 5.7 K/uL (3.6-10.2)
[2018-03-29 13:21] LABS: CREATININE 1.8 mg/dL (0.6-1.3); POTASSIUM 3.8 mmol/L (3.5-5.1)
[2018-03-29 13:26] LABS: BILIRUBIN,DIRECT 0.1 mg/dL (0.0-0.2); BILIRUBIN,TOTAL 0.4 mg/dL (0.2-1.0); TOTAL PROTEIN, SERUM 8.2 g/dL (6.4-8.2)
--- NOTE | 2018-03-29 13:47 | NUR ---
Pt denies nausea and states will eat lunch.
--- NOTE | 2018-03-29 13:49 | NUR ---
Lunch provided, pt ate 100% of tray. denies N/V/D. no c/o pain.
--- NOTE | 2018-03-29 14:25 | NUR ---
Pt will be transfered back to [facility], per . [facility] called, Trip #[id number]. ETA is 20 min.
--- NOTE | 2018-03-29 14:34 | NUR ---
IV removed. Catheter intact and site benign. Pressure and 4x4 gauze applied to site. No bleeding noted.
[2018-03-29 15:15] VITALS: BP 118/71
--- NOTE | 2018-03-29 15:15 | NUR ---
REPORT GIVE TO AMBULANCE EMT PATIENT TAKEN IN A GURNEY. PATIENT NAD.
== END 2018-03-29 15:15 | disposition home or self-care (01) ==
LOC: ER 12:35
DX: R19.7 Diarrhea, unspecified (principal); I11.0 Hypertensive heart disease with heart failure; I50.9 Heart failure, unspecified; E11.9 Type 2 diabetes mellitus without complications; Z79.2 Long term (current) use of antibiotics; Z79.891 Long term (current) use of opiate analgesic; Z79.899 Other long term (current) drug therapy
CPT/HCPCS: 36415; 80048; 80076; 83690; 85025; 96360; 99284; A4663; J7030